=== PATIENT | female | born 1955 | race Caucasian/White ===

== ENCOUNTER 2017-04-05 15:58 | Inpatient (IN) ==
[2017-04-05] MEDS ORDERED: DEXTROSE 50% 25 GM/50 ML VIAL IV PRN (16:12)
[2017-04-05] MEDS ORDERED: GLUCAGON 1 MG VIAL IM PRN (16:12)
[2017-04-05] MEDS ORDERED: ONDANSETRON 4 MG/2 ML VIAL IV PRN (16:12)
--- NOTE | 2017-04-05 16:44 | Internal Med History&Physical ---
Assessment and Plan - Time spent with patient Time spent with patient: Less than 30 minutes (1) Dehydration, moderate Status: Acute Current Visit: Yes (2) Hypertension, essential Status: Chronic Current Visit: Yes (3) Type 2 diabetes mellitus with hyperglycemia Status: Chronic Current Visit: Yes (4) Morbid obesity due to excess calories Status: Chronic Current Visit: Yes (5) Dyslipidemia Status: Chronic Current Visit: Yes History of Present Illness Chief complaint: admission from the clinic for dehydration, diabetes type 2 uncontrolled, History of present illness: Ms. Head is a 61 year old female pt came for clinic visit, PCP was , last visit more than 1 year ago. has high blood glu reading 400+,since 1 week. feeling nauseated, vomiting + since 2 weeks, having loss of appetite. vomit was with stomach contents, no blood, did not eat since this morning, no fever, no chest pain , no cough, No diarrhea, no urine symptoms, feels throat hurting since 3 days because of the vomiting. feeling dehydrated, Home Medications Medication Instructions Recorded Confirmed Type Atorvastatin [Lipitor] 10 mg PO DAILY 04/23/15 04/23/15 History Escitalopram [Lexapro] 10 mg PO DAILY 04/23/15 04/23/15 History Insulin Glargine,Hum.rec.anlog 20 units SUBCUT BID 04/23/15 04/23/15 History [Lantus Solostar] Insulin Glargine,Hum.rec.anlog 30 units SUBCUT BEDTIME 04/23/15 04/23/15 History [Lantus Solostar] Liraglutide [Victoza 2-Jarrett] 1.2 ml SUBCUT DAILY 04/23/15 04/23/15 History Valsartan [Valsartan] 160 mg PO DAILY 04/23/15 04/23/15 History Allergies Allergy/AdvReac Type Severity Reaction Status Date / Time No Known Allergies Allergy Unverified 04/23/15 15:38 Medical,Surgical,& Family Hx - Medical History Cardio: History of: Hypertension Psychological: History of: Anxiety Disorders Endocrine: History of: Diabetes Mellitus (IDDM) (uncontrolled), Dyslipidemia - Surgical History Abdominal Surgeries: Surgical HX of: EGD (2010) - Family History Family History: noncontributory - Social History Smoking Status: Never smoker 12 point system: reviewed and no additional remarkable complaints except as stated - Constitutional Constitutional: Present: as per HPI - EENT Eyes: Present: blurry vision (right eye intermittently) - Cardiovascular Cardiovascular: Present: as per HPI - Respiratory Respiratory: Present: as per HPI - Gastrointestinal Gastrointestinal: Present: as per HPI Exam - Constitutional Vitals: Vitals from the clinic on 04/05/2017, Temp 98.1, heart rate 98/m, respirations 20/m, blood pressure 170/98, weight 215 pounds, height 64 inches BMI 36.90, pulse ox 99% at room air General appearance: no acute distress, morbidly obese - Head Head exam: Present: normal inspection, atraumatic - Eye Eye exam: Present: EOMI Pupils: Present: JACKIE - ENT ENT exam: Present: normal exam - Neck Neck exam: Present: normal inspection - Respiratory Respiratory exam: Present: clear to auscultation bilaterally - Cardiovascular Cardiovascular exam: Present: regular rate and rhythm - GI/Abdominal GI/Abdominal exam: Present: normal bowel sounds, tenderness (none), soft - Extremities Exam Extremities exam: Present: normal inspection, edema (no pedal edema) - Psychiatric Psychiatric exam: Present: normal affect, normal mood - Skin Skin exam: Present: dry (oral mucous membranes) Results - Labs Labs: Dated 04/05/2017, done in the clinic. CBC with H&H 13.9, 44.8, WBC count 8.81 CMP glucose for 411, BUN/creatinine 21, 0.84, bicarbonate 27.9 Hemoglobin A1c 12.8 Urinalysis, urine glucose more than 1000, urine ketones more than 80. Awaiting serum ketones results
[2017-04-05 17:00] LABS: Basophils # 0.1 10*3/uL (0.0-0.2); Basophils % 0.7 % (0.0-0.8); Eosinophils # 0.2 10*3/uL (0.0-0.87); Eosinophils % 1.5 % (0.00-10.9); Hematocrit 43.7 VOL% (35.7-47.0); Hemoglobin 14.5 GM/DL (12.0-16.0); Immature Granulocytes % 0.4 %; Immature Granulocytes Absolute 0.04 #; Lymphocytes # 2.4 10*3/uL (1.4-4.0); Lymphocytes % 24.8 % (21.3-54.2); Mean Corpuscular HGB Conc 33.2 GM/DL (32-36); Mean Corpuscular Hemoglobin 31 PG (27-34); Mean Corpuscular Volume 91.8 FL (87-102); Mean Platelet Volume 11.6 FL (9.6-12.0); Monocytes # 0.7 10*3/uL (0.11-0.8); Monocytes % 6.9 % (1.7-12.7); Neutrophils # 6.4 10*3/uL (1.4-7.4); Neutrophils % 65.7 % (38.7-73.9); Platelet Count 300 T/CUMM (130-400); Red Blood Count 4.76 MC/CUMM (3.8-5.5); White Blood Count 9.7 T/CUMM (4-12)
[2017-04-05] MEDS: SODIUM CHLORIDE 0.45% 1,000 ML IV SCH (17:00)
[2017-04-05 17:17] LABS: Calcium 10.2 MG/DL (8.5-10.1); Osmolality,Calculated 285.4 MOS/KG (273-304); Potassium 4.8 MMOL/L (3.5-5.1)
[2017-04-05] MEDS: INSULIN LISPRO 100 UNIT/ML SUBCUT SCH ×2 (17:56→21:02)
[2017-04-05] MEDS: VALSARTAN 160 MG TABLET PO SCH (18:30)
[2017-04-05] MEDS: INSULIN GLARGINE 100 UNIT/ML SUBCUT SCH (21:01)
[2017-04-05] MEDS: ENOXAPARIN 40 MG/0.4 ML SYRINGE SUBCUT SCH (21:03)
[2017-04-06] MEDS: SODIUM CHLORIDE 0.45% 1,000 ML IV SCH ×2 (01:38→09:59)
[2017-04-06 06:26] LABS: Calcium 8.9 MG/DL (8.5-10.1); Potassium 4.4 MMOL/L (3.5-5.1)
[2017-04-06] MEDS ORDERED: SODIUM CHLORIDE 0.9% 1,000 ML IV SCH (09:30)
[2017-04-06] MEDS: INSULIN LISPRO 100 UNIT/ML SUBCUT SCH ×4 (09:47→21:54)
[2017-04-06] MEDS: PANTOPRAZOLE 40 MG TABLET PO SCH (09:47)
[2017-04-06] MEDS: ATORVASTATIN 10 MG TABLET PO SCH (09:47)
[2017-04-06] MEDS: VALSARTAN 160 MG TABLET PO SCH (09:47)
--- NOTE | 2017-04-06 09:48 | Internal Med Progress Note ---
Assessment and Plan (1) Dehydration, moderate Status: Acute Current Visit: Yes (2) Hypertension, essential Status: Chronic Current Visit: Yes (3) Type 2 diabetes mellitus with hyperglycemia Status: Chronic Current Visit: Yes (4) Morbid obesity due to excess calories Status: Chronic Current Visit: Yes (5) Dyslipidemia Status: Chronic Current Visit: Yes Internal Medicine - PN: Subj Interval history: Patient seen and examined in the exam room, Patient feels better than yesterday, mentions her last vomited yesterday evening 1 vomit with stomach contents. This morning nausea has improved No diarrhea. No burning sensation in the urine. Exam (Progress Note) - Constitutional Vitals: Period Temp Pulse Resp BP Sys/Zurita Pulse Ox Last 24 Hr 98.2 F-98.6 F 97-105 18-20 128-137/62-69 97-100 General appearance: no acute distress, morbidly obese - Head Head exam: Present: normal inspection, normocephalic, atraumatic - Eye Eye exam: Present: EOMI Pupils: Present: JACKIE - ENT ENT exam: Present: other (Decreased hearing on the right side) - Neck Neck exam: Present: normal inspection - Respiratory Respiratory exam: Present: clear to auscultation bilaterally - Cardiovascular Cardiovascular exam: Present: regular rate and rhythm - GI/Abdominal GI/Abdominal exam: Present: normal bowel sounds, soft - Extremities Exam Extremities exam: Present: normal inspection - Neurological Exam Neurological exam: Present: oriented X3, CN II-XII intact - Skin Skin exam: Present: normal color Results - Labs CBC & BMP: 04/05/17 16:40 04/06/17 04:28
[2017-04-06] MEDS: metFORMIN 500 MG TABLET PO SCH (19:33)
[2017-04-06] MEDS: sitaGLIPtin 25 MG TABLET PO SCH (19:34)
[2017-04-06] MEDS: ENOXAPARIN 40 MG/0.4 ML SYRINGE SUBCUT SCH (21:51)
[2017-04-06] MEDS: INSULIN GLARGINE 100 UNIT/ML SUBCUT SCH (21:53)
[2017-04-07] MEDS: metFORMIN 500 MG TABLET PO SCH ×2 (09:06→09:09)
[2017-04-07] MEDS: VALSARTAN 160 MG TABLET PO SCH (09:06)
[2017-04-07] MEDS: PANTOPRAZOLE 40 MG TABLET PO SCH (09:06)
[2017-04-07] MEDS: sitaGLIPtin 25 MG TABLET PO SCH (09:06)
[2017-04-07] MEDS: ATORVASTATIN 10 MG TABLET PO SCH (09:06)
[2017-04-07] MEDS: INSULIN LISPRO 100 UNIT/ML SUBCUT SCH (09:50)
--- NOTE | 2017-04-07 11:48 | Discharge Summary ---
Hospital Course - Hospital Course Hospital Course: pt admitted from the [facility] clinic on 04/05/17 , for IVVD/dehydration , uncontrolled type [address] mellitus[address] Blancas the last appointment was more than 1 year ago. Patient is very noncompliant with her medication. When presented in the clinic, patient was vomiting for the past 2 weeks. Patient was put in 4 E. with monitored bed. Was put on IV fluids sliding scale insulin and continued her home medication. Patient improved during the hospital course vomiting improved, basic labs were followed during the hospital stay. Dehydration improved,no vomiting since past 24 hrs . Patient refused gastric emptying study during the hospital stay, Patient was also taking her home insulin medication without telling the nurse. As per the diabetic consult patient is not using the insulin pen correctly. She was taught how to use the pen properly. - Time spent with patient Time with patient DS: Less than 30 minutes Diagnosis - Discharge Diagnosis (1) Dehydration, moderate Status: Resolved (2) Hypertension, essential Status: Chronic (3) Type 2 diabetes mellitus with hyperglycemia Status: Chronic (4) Morbid obesity due to excess calories Status: Chronic (5) Dyslipidemia Status: Chronic (6) Anxiety Status: Chronic (7) Medical non-compliance Status: Chronic Specialty Discharge - Follow Up or Referrals Follow up with: Otf Blancas MD [Primary Care Provider] - 04/14/17 Discharge Plan - Discharge Data Disposition: Disch To Home/Self Care Condition at Discharge: Stable Discharge Diet: diabetic diet, low salt diet Activity: resume usual activities as tolerated Hygiene: no restrictions - Discharge Medications New sitaGLIPtin [Januvia] 50 mg PO DAILY #30 tablet NS metFORMIN [Glucophage] 500 mg PO BID W/MEALS #60 tablet NS Pantoprazole Tab [Protonix Tab] 20 mg PO DAILY #30 tablet NS Continue Valsartan 160 mg PO DAILY Atorvastatin [Lipitor] 10 mg PO DAILY Escitalopram [Lexapro] 10 mg PO DAILY #30 Changed Insulin Glargine,Hum.rec.anlog [Lantus SoloStar] 30 units SUBCUT BEDTIME #1 unit NS No Action Escitalopram [Lexapro] 10 mg PO DAILY Glimepiride [Amaryl] 2 mg PO DAILY W/BREAKFAST - Follow Up or Referral Follow Up: Otf Blancas MD [Primary Care Provider] - 04/14/17 (Cancel appointment with Dr. Blancas.) - Forms/Instructions Instructions: Diabetes Mellitus Type 2 in Adults (GEN) Exam - Constitutional Vitals: Period Temp Pulse Resp BP Sys/Zurita Pulse Ox Last 24 Hr 97.3 F-98.3 F 88-110 18-20 97-149/50-69 96-97 General appearance: no acute distress Exam: Patient is up and walking around in the room, no IV fluids in place - Head Head exam: Present: normal inspection, normocephalic - Eye Eye exam: Present: EOMI Pupils: Present: JACKIE - ENT ENT exam: Present: other (Decreased hearing on the right side.) - Neck Neck exam: Present: normal inspection - Respiratory Respiratory exam: Present: clear to auscultation bilaterally - Cardiovascular Cardiovascular exam: Present: regular rate and rhythm - GI/Abdominal GI/Abdominal exam: Present: normal bowel sounds, soft - Extremities Exam Extremities exam: Present: normal inspection, edema (None) - Neurological Exam Neurological exam: Present: alert, oriented X3, normal gait - Psychiatric Psychiatric exam: Present: normal affect, normal mood, anxious (mild) - Skin Skin exam: Present: normal color Discharge Results Procedures and tests throughout hospitalization: Patient refused gastric emptying study which was supposed to be done today. Labs on day of discharge: Labs from last 24 hours 04/07/17 04/07/17 04/07/17 07:30 03:32 01:31 POC Glucose 247 H 214 H 79 04/06/17 04/06/17 04/06/17 21:43 19:46 16:58 POC Glucose 366 H 471 H 369 H 04/06/17 12:40 POC Glucose 265 H DS: Provider Date of admission: 04/05/17 16:08 Primary care physician: Otf Blancas MD Attending physician on admission: Mandy Gambino MD Consults: 04/05/17 16:12 Consult to Case Mgmt/Social Srvs [CONS] Routine Reason for Case Mgmt/Social Srvs: Discharge Planning 04/05/17 16:32 Consult to [facility], Educator [CONS] Routine Reason for Associate Director Qa: Re-education Evaluate and Recommend Diet Discharging clinician: Mandy Gambino MD Expected date of discharge: 04/07/17
[2017-04-07 13:31] VITALS: BP 124/60
== END 2017-04-07 13:25 | disposition home or self-care (01) | DRG 638 ==
LOC: N.4E 16:08
PROVIDERS: ADMIT Family Medicine; ATTEND Family Medicine

== ENCOUNTER 2018-07-31 16:11 | Inpatient (IN) ==
[2018-07-31] MEDS ORDERED: SODIUM CHLORIDE 0.9% 1,000 ML IV PRN (16:23)
[2018-07-31] MEDS ORDERED: DEXTROSE 50% 25 GM/50 ML VIAL IV PRN (17:27)
[2018-07-31] MEDS ORDERED: GLUCAGON 1 MG VIAL IM PRN (17:27)
[2018-07-31] MEDS: SODIUM CHLORIDE 0.9% 1,000 ML IV SCH (17:59)
[2018-07-31] MEDS: INSULIN LISPRO 100 UNIT/ML SUBCUT SCH ×2 (18:10→21:55)
[2018-07-31 18:12] LABS: Albumin 2.8 G/DL (3.4-5.0); Bilirubin,Total 0.7 MG/DL (0.2-1.0); Calcium 8.6 MG/DL (8.5-10.1); Osmolality,Calculated 284.1 MOS/KG (273-304); Potassium 4.4 MMOL/L (3.5-5.1); Total Protein 7.6 G/DL (6.4-8.3)
[2018-07-31 18:14] LABS: % Iron Saturation 2.5 % (18-50); Ferritin 2.8 ng/ml (8-252)
[2018-07-31 18:19] LABS: Folate 21.4 NG/ML (5.4-24.0); Vitamin B12 > 2000 PG/ML (211-911)
[2018-07-31] MEDS: prednisoLONE ACETATE 1% OPH SUSP 5 ML BOTTLE RIGHT EYE SCH ×2 (18:38→20:32)
[2018-07-31 18:46] LABS: Apearance,Urine CLEAR (Clear); Bacteria,Urine Occasional /HPF (Few); Bilirubin,Urine Negative (Negative); Blood, Urine Negative (Negative); Glucose,Urine (UA) >=500 mg/dL (Negative); Ketones,Urine Negative (Negative); Nitrite,Urine Negative (Negative); Protein,Urine Negative; RBC,Urine <1 /HPF (0-4); Urine Color Straw (Yellow); Urine Specific Gravity 1.012 (1.001-1.035); Urine Urobilinogen < 2.0 EU/DL (0.2-1.0); WBC,Urine 5 /HPF (0-6)
[2018-07-31] MEDS: DOCUSATE SODIUM 100 MG CAPSULE PO SCH (20:30)
[2018-07-31] MEDS: PANTOPRAZOLE 40 MG VIAL IV SCH (20:31)
[2018-07-31] MEDS: ACETAMINOPHEN 325 MG TABLET PO PRN (21:44)
[2018-07-31 23:33] LABS: Apearance,Urine CLEAR (Clear); Bacteria,Urine Occasional /HPF (Few); Bilirubin,Urine Negative (Negative); Blood, Urine Negative (Negative); Glucose,Urine (UA) >=500 mg/dL (Negative); Ketones,Urine Negative (Negative); Nitrite,Urine Negative (Negative); Protein,Urine Negative; RBC,Urine 2 /HPF (0-4); Squamous Epithelial Cell,Urine Occasional /HPF (0-10); Urine Color Colorless (Yellow); Urine Specific Gravity 1.005 (1.001-1.035); Urine Urobilinogen < 2.0 EU/DL (0.2-1.0); WBC,Urine 13 /HPF (0-6)
[2018-08-01] MEDS: SODIUM CHLORIDE 0.9% 1,000 ML IV SCH ×3 (02:12→18:16)
[2018-08-01 06:05] LABS: Basophils # 0.1 10*3/uL (0.0-0.2); Basophils % 0.7 % (0.0-0.8); Eosinophils # 0.5 10*3/uL (0.0-0.87); Eosinophils % 4.7 % (0.00-10.9); Hematocrit 30.4 VOL% (35.7-47.0); Hemoglobin 9.1 GM/DL (12.0-16.0); Immature Granulocytes % 0.8 %; Immature Granulocytes Absolute 0.08 #; Lymphocytes # 2.4 10*3/uL (1.4-4.0); Lymphocytes % 23.8 % (21.3-54.2); Mean Corpuscular HGB Conc 29.9 GM/DL (32-36); Mean Corpuscular Hemoglobin 24 PG (27-34); Mean Corpuscular Volume 78.6 FL (87-102); Monocytes # 0.8 10*3/uL (0.11-0.8); Monocytes % 8.3 % (1.7-12.7); NRBC # 0.02 10*3/uL; Neutrophils # 6.1 10*3/uL (1.4-7.4); Neutrophils % 61.7 % (38.7-73.9); Platelet Count 565 T/CUMM (130-400); Red Blood Count 3.87 MC/CUMM (3.8-5.5); Red Cell Distribution Width 15.1 % (9.3-17.3)
[2018-08-01] MEDS: cefTRIAXone 1,000 MG in SYRINGE 1 EACH IV SCH (07:23)
[2018-08-01] MEDS: INSULIN LISPRO 100 UNIT/ML SUBCUT SCH ×4 (07:43→21:38)
[2018-08-01 07:52] LABS: INR 0.9
[2018-08-01] MEDS: DOCUSATE SODIUM 100 MG CAPSULE PO SCH ×2 (08:12→21:38)
[2018-08-01] MEDS: PANTOPRAZOLE 40 MG VIAL IV SCH ×2 (08:12→21:48)
[2018-08-01] MEDS: prednisoLONE ACETATE 1% OPH SUSP 5 ML BOTTLE RIGHT EYE SCH ×4 (08:16→21:39)
[2018-08-01 08:49] LABS: Total Protein 7.7 G/DL (6.4-8.3)
[2018-08-01 09:00] LABS: Immunoglobulin A (Chem) 433 MG/DL (70-400); Immunoglobulin G (Chem) 1360 MG/DL (700-1600); Immunoglobulin M (Chem) 148 MG/DL (40-230); Total Protein (Chem) 7.7 G/DL (6.4-8.3)
[2018-08-01] MEDS ORDERED: PANTOPRAZOLE 40 MG VIAL IV SCH (09:00)
[2018-08-01 09:22] LABS: Immuno Free Light Chain Lambda 2.25 MG/DL (0.57-2.63); Immuno Free Light Chain Ratio 1.11 MG/DL (0.26-1.65)
[2018-08-01 10:26] LABS: Albumin (SPE) 3.5 G/DL (3.2-5.3)
[2018-08-01 10:27] LABS: Albumin (SPE) Rel % 45.8 %; Alpha 1 (SPE) 0.3 G/DL (0.1-0.4); Alpha 1 (SPE) Rel % 4.4 %; Alpha 2 (SPE) 1.2 G/DL (0.4-1.0); Alpha 2 (SPE) Rel % 15.3 %; Beta (SPE) 1.1 G/DL (0.5-1.1); Beta (SPE) Rel % 14.2 %; Gamma (SPE) 1.6 G/DL (0.7-1.7); Gamma (SPE) Rel % 20.3 %
[2018-08-01] MEDS: ACETAMINOPHEN 325 MG TABLET PO PRN ×2 (13:01→18:15)
[2018-08-01] MEDS ORDERED: POLYETHYLENE GLYCOL POWDER 17 GM PACK PO PRN (14:28)
[2018-08-02] MEDS: SODIUM CHLORIDE 0.9% 1,000 ML IV SCH ×3 (02:37→16:51)
[2018-08-02] MEDS: ACETAMINOPHEN 325 MG TABLET PO PRN ×3 (05:52→21:04)
[2018-08-02 08:47] LABS: Basophils # 0.1 10*3/uL (0.0-0.2); Basophils % 0.6 % (0.0-0.8); Eosinophils # 0.5 10*3/uL (0.0-0.87); Eosinophils % 4.9 % (0.00-10.9); Hematocrit 27.8 VOL% (35.7-47.0); Hemoglobin 8.4 GM/DL (12.0-16.0); Lymphocytes # 1.6 10*3/uL (1.4-4.0); Lymphocytes % 16.6 % (21.3-54.2); Mean Corpuscular HGB Conc 30.2 GM/DL (32-36); Mean Corpuscular Hemoglobin 24 PG (27-34); Mean Corpuscular Volume 80.3 FL (87-102); Mean Platelet Volume 9.6 FL (9.6-12.0); Monocytes % 9.7 % (1.7-12.7); Neutrophils # 6.6 10*3/uL (1.4-7.4); Neutrophils % 67.2 % (38.7-73.9); Platelet Count 526 T/CUMM (130-400); Red Blood Count 3.46 MC/CUMM (3.8-5.5); Red Cell Distribution Width 16.1 % (9.3-17.3); White Blood Count 9.8 T/CUMM (4-12)
[2018-08-02] MEDS: prednisoLONE ACETATE 1% OPH SUSP 5 ML BOTTLE RIGHT EYE SCH ×4 (09:01→21:04)
[2018-08-02] MEDS: INSULIN LISPRO 100 UNIT/ML SUBCUT SCH ×4 (09:01→21:03)
[2018-08-02] MEDS: DOCUSATE SODIUM 100 MG CAPSULE PO SCH ×2 (09:01→21:04)
[2018-08-02] MEDS: PANTOPRAZOLE 40 MG VIAL IV SCH ×2 (09:01→21:03)
[2018-08-02] MEDS: cefTRIAXone 1,000 MG in SYRINGE 1 EACH IV SCH (09:05)
[2018-08-02] MEDS ORDERED: LIDOCAINE 2% 5 ML VIAL ONE (10:00)
[2018-08-02] MEDS ORDERED: PROPOFOL 200 MG/20 ML VIAL IV ONE (10:00)
[2018-08-02] MEDS ORDERED: ACETAMINOPHEN 500 MG TABLET PO ONE (23:00)
[2018-08-03] MEDS: SODIUM CHLORIDE 0.9% 1,000 ML IV SCH ×3 (02:19→23:41)
[2018-08-03] MEDS: INSULIN LISPRO 100 UNIT/ML SUBCUT SCH ×4 (08:54→21:06)
[2018-08-03] MEDS: DOCUSATE SODIUM 100 MG CAPSULE PO SCH ×2 (08:55→21:06)
[2018-08-03] MEDS: cefTRIAXone 1,000 MG in SYRINGE 1 EACH IV SCH (08:55)
[2018-08-03] MEDS: HYDROmorphone 2 MG/1 ML VIAL IV PRN ×2 (09:02→21:24)
[2018-08-03] MEDS: prednisoLONE ACETATE 1% OPH SUSP 5 ML BOTTLE RIGHT EYE SCH ×4 (09:04→21:08)
[2018-08-03] MEDS: PANTOPRAZOLE 40 MG VIAL IV SCH ×2 (09:05→21:06)
[2018-08-03 10:07] LABS: Cancer Antigen 19-9 165.8 U/ML (0-37)
[2018-08-03] MEDS ORDERED: BISACODYL 5 MG TABLET PO ONE (12:48)
[2018-08-04] MEDS: HYDROmorphone 2 MG/1 ML VIAL IV PRN ×4 (04:14→21:15)
[2018-08-04] MEDS: SODIUM CHLORIDE 0.9% 1,000 ML IV SCH ×3 (08:20→20:59)
[2018-08-04] MEDS: cefTRIAXone 1,000 MG in SYRINGE 1 EACH IV SCH (08:21)
[2018-08-04] MEDS: PANTOPRAZOLE 40 MG VIAL IV SCH ×2 (08:22→20:59)
[2018-08-04] MEDS: DOCUSATE SODIUM 100 MG CAPSULE PO SCH ×2 (08:23→20:59)
[2018-08-04] MEDS: prednisoLONE ACETATE 1% OPH SUSP 5 ML BOTTLE RIGHT EYE SCH ×4 (08:23→21:16)
[2018-08-04] MEDS: INSULIN LISPRO 100 UNIT/ML SUBCUT SCH ×4 (08:28→21:08)
[2018-08-04 08:41] LABS: Hematocrit 30.4 VOL% (35.7-47.0); Hemoglobin 8.9 GM/DL (12.0-16.0)
[2018-08-05] MEDS: SODIUM CHLORIDE 0.9% 1,000 ML IV SCH ×3 (02:07→21:23)
[2018-08-05] MEDS: HYDROmorphone 2 MG/1 ML VIAL IV PRN ×4 (05:25→19:09)
[2018-08-05 05:48] LABS: Basophils # 0.1 10*3/uL (0.0-0.2); Basophils % 0.6 % (0.0-0.8); Eosinophils # 0.4 10*3/uL (0.0-0.87); Eosinophils % 4.9 % (0.00-10.9); Hematocrit 28.7 VOL% (35.7-47.0); Hemoglobin 8.4 GM/DL (12.0-16.0); Immature Granulocytes % 0.5 %; Immature Granulocytes Absolute 0.04 #; Lymphocytes # 1.3 10*3/uL (1.4-4.0); Lymphocytes % 15.9 % (21.3-54.2); Mean Corpuscular HGB Conc 29.3 GM/DL (32-36); Mean Corpuscular Hemoglobin 24 PG (27-34); Mean Platelet Volume 9.2 FL (9.6-12.0); Monocytes # 0.7 10*3/uL (0.11-0.8); Monocytes % 7.9 % (1.7-12.7); Neutrophils # 5.8 10*3/uL (1.4-7.4); Neutrophils % 70.2 % (38.7-73.9); Platelet Count 476 T/CUMM (130-400); White Blood Count 8.2 T/CUMM (4-12)
[2018-08-05 05:50] LABS: Calcium 8.6 MG/DL (8.5-10.1); Potassium 3.9 MMOL/L (3.5-5.1)
[2018-08-05] MEDS: INSULIN LISPRO 100 UNIT/ML SUBCUT SCH ×4 (08:24→21:21)
[2018-08-05] MEDS: prednisoLONE ACETATE 1% OPH SUSP 5 ML BOTTLE RIGHT EYE SCH ×4 (08:25→21:21)
[2018-08-05] MEDS: cefTRIAXone 1,000 MG in SYRINGE 1 EACH IV SCH (08:25)
[2018-08-05] MEDS: DOCUSATE SODIUM 100 MG CAPSULE PO SCH ×2 (08:26→21:20)
[2018-08-05] MEDS: PANTOPRAZOLE 40 MG VIAL IV SCH ×2 (08:26→21:20)
[2018-08-05] MEDS: VALSARTAN 160 MG TABLET PO SCH (12:35)
[2018-08-05] MEDS: INSULIN GLARGINE 100 UNIT/ML SUBCUT SCH ×2 (21:22→21:29)
[2018-08-06] MEDS: HYDROmorphone 2 MG/1 ML VIAL IV PRN ×4 (01:12→20:36)
[2018-08-06 06:21] LABS: Basophils % 0.3 % (0.0-0.8); Eosinophils # 0.3 10*3/uL (0.0-0.87); Eosinophils % 4.3 % (0.00-10.9); Hematocrit 27.4 VOL% (35.7-47.0); Hemoglobin 8.1 GM/DL (12.0-16.0); Immature Granulocytes % 0.5 %; Immature Granulocytes Absolute 0.04 #; Lymphocytes # 1.4 10*3/uL (1.4-4.0); Lymphocytes % 17.5 % (21.3-54.2); Mean Corpuscular HGB Conc 29.6 GM/DL (32-36); Mean Corpuscular Hemoglobin 24 PG (27-34); Mean Corpuscular Volume 80.8 FL (87-102); Mean Platelet Volume 9.9 FL (9.6-12.0); Monocytes # 0.7 10*3/uL (0.11-0.8); Monocytes % 8.8 % (1.7-12.7); Neutrophils # 5.5 10*3/uL (1.4-7.4); Neutrophils % 68.6 % (38.7-73.9); Platelet Count 481 T/CUMM (130-400); Red Blood Count 3.39 MC/CUMM (3.8-5.5); Red Cell Distribution Width 18.3 % (9.3-17.3)
[2018-08-06 06:40] LABS: Calcium 8.7 MG/DL (8.5-10.1); Osmolality,Calculated 278.2 MOS/KG (273-304); Potassium 3.9 MMOL/L (3.5-5.1)
[2018-08-06] MEDS: INSULIN LISPRO 100 UNIT/ML SUBCUT SCH ×5 (07:45→22:29)
[2018-08-06] MEDS: cefTRIAXone 1,000 MG in SYRINGE 1 EACH IV SCH (08:03)
[2018-08-06] MEDS: VALSARTAN 160 MG TABLET PO SCH (10:06)
[2018-08-06] MEDS: PANTOPRAZOLE 40 MG VIAL IV SCH ×2 (10:06→20:36)
[2018-08-06] MEDS: ESCITALOPRAM 10 MG TABLET PO SCH (10:06)
[2018-08-06] MEDS: ATORVASTATIN 10 MG TABLET PO SCH (10:07)
[2018-08-06] MEDS: prednisoLONE ACETATE 1% OPH SUSP 5 ML BOTTLE RIGHT EYE SCH ×4 (10:07→20:45)
[2018-08-06] MEDS: DOCUSATE SODIUM 100 MG CAPSULE PO SCH ×2 (10:08→20:45)
[2018-08-06] MEDS: SODIUM CHLORIDE 0.9% 1,000 ML IV SCH (19:10)
[2018-08-06] MEDS: INSULIN GLARGINE 100 UNIT/ML SUBCUT SCH (22:29)
[2018-08-07] MEDS: HYDROmorphone 2 MG/1 ML VIAL IV PRN ×5 (02:02→21:49)
[2018-08-07] MEDS: INSULIN LISPRO 100 UNIT/ML SUBCUT SCH ×4 (08:00→21:05)
[2018-08-07 08:15] LABS: Basophils # 0.1 10*3/uL (0.0-0.2); Basophils % 0.7 % (0.0-0.8); Eosinophils # 0.5 10*3/uL (0.0-0.87); Eosinophils % 7.1 % (0.00-10.9); Hematocrit 28.4 VOL% (35.7-47.0); Hemoglobin 8.3 GM/DL (12.0-16.0); Immature Granulocytes % 0.6 %; Immature Granulocytes Absolute 0.04 #; Lymphocytes # 1.3 10*3/uL (1.4-4.0); Lymphocytes % 18.7 % (21.3-54.2); Mean Corpuscular HGB Conc 29.2 GM/DL (32-36); Mean Corpuscular Hemoglobin 24 PG (27-34); Mean Corpuscular Volume 81.8 FL (87-102); Mean Platelet Volume 9.6 FL (9.6-12.0); Monocytes # 0.7 10*3/uL (0.11-0.8); Monocytes % 9.9 % (1.7-12.7); Neutrophils # 4.4 10*3/uL (1.4-7.4); Platelet Count 435 T/CUMM (130-400); Red Blood Count 3.47 MC/CUMM (3.8-5.5); Red Cell Distribution Width 18.2 % (9.3-17.3)
[2018-08-07] MEDS ORDERED: LIDOCAINE 100 MG/5 ML SYRINGE ONE (09:00)
[2018-08-07] MEDS ORDERED: PROPOFOL 200 MG/20 ML VIAL IV ONE (09:00)
[2018-08-07] MEDS: DOCUSATE SODIUM 100 MG CAPSULE PO SCH ×2 (11:41→21:05)
[2018-08-07] MEDS: VALSARTAN 160 MG TABLET PO SCH (11:41)
[2018-08-07] MEDS: Liraglutide [Victoza 2-Pak] 1.2 MG SUBCUT SCH (11:42)
[2018-08-07] MEDS: ESCITALOPRAM 10 MG TABLET PO SCH (11:42)
[2018-08-07] MEDS: ATORVASTATIN 10 MG TABLET PO SCH (11:42)
[2018-08-07] MEDS: PANTOPRAZOLE 40 MG VIAL IV SCH ×2 (11:57→21:05)
[2018-08-07] MEDS: cefTRIAXone 1,000 MG in SYRINGE 1 EACH IV SCH (12:01)
[2018-08-07] MEDS: prednisoLONE ACETATE 1% OPH SUSP 5 ML BOTTLE RIGHT EYE SCH ×4 (12:01→19:50)
[2018-08-07] MEDS ORDERED: INSULIN LISPRO 100 UNIT/ML SUBCUT ONE (12:46)
[2018-08-07] MEDS: SODIUM CHLORIDE 0.9% 1,000 ML IV SCH (17:33)
[2018-08-07] MEDS: INSULIN GLARGINE 100 UNIT/ML SUBCUT SCH (21:04)
[2018-08-07] MEDS: ONDANSETRON 4 MG/2 ML VIAL IV PRN (21:48)
[2018-08-08] MEDS: HYDROmorphone 2 MG/1 ML VIAL IV PRN ×5 (02:18→21:02)
[2018-08-08 05:54] LABS: Basophils # 0.1 10*3/uL (0.0-0.2); Basophils % 0.4 % (0.0-0.8); Hemoglobin 9.3 GM/DL (12.0-16.0); Immature Granulocytes % 0.6 %; Immature Granulocytes Absolute 0.08 #; Lymphocytes # 0.8 10*3/uL (1.4-4.0); Mean Corpuscular Hemoglobin 24 PG (27-34); Mean Corpuscular Volume 80.3 FL (87-102); Mean Platelet Volume 9.3 FL (9.6-12.0); Monocytes # 0.9 10*3/uL (0.11-0.8); Monocytes % 7.2 % (1.7-12.7); Neutrophils % 85.8 % (38.7-73.9); Platelet Count 479 T/CUMM (130-400); Red Blood Count 3.86 MC/CUMM (3.8-5.5); Red Cell Distribution Width 18.3 % (9.3-17.3); White Blood Count 12.8 T/CUMM (4-12)
[2018-08-08 06:14] LABS: Albumin 2.6 G/DL (3.4-5.0); Bilirubin,Total 0.5 MG/DL (0.2-1.0); Osmolality,Calculated 273.2 MOS/KG (273-304); Potassium 4.2 MMOL/L (3.5-5.1); Total Protein 7.7 G/DL (6.4-8.3)
[2018-08-08] MEDS: PANTOPRAZOLE 40 MG VIAL IV SCH ×2 (08:55→20:53)
[2018-08-08] MEDS: ATORVASTATIN 10 MG TABLET PO SCH (08:58)
[2018-08-08] MEDS: DOCUSATE SODIUM 100 MG CAPSULE PO SCH ×2 (08:58→20:54)
[2018-08-08] MEDS: ESCITALOPRAM 10 MG TABLET PO SCH (08:58)
[2018-08-08] MEDS: VALSARTAN 160 MG TABLET PO SCH (08:58)
[2018-08-08] MEDS: INSULIN LISPRO 100 UNIT/ML SUBCUT SCH ×4 (08:58→20:54)
[2018-08-08] MEDS: prednisoLONE ACETATE 1% OPH SUSP 5 ML BOTTLE RIGHT EYE SCH ×4 (09:04→20:21)
[2018-08-08] MEDS: Liraglutide [Victoza 2-Pak] 1.2 MG SUBCUT SCH (09:05)
[2018-08-08] MEDS: cefTRIAXone 1,000 MG in SYRINGE 1 EACH IV SCH (10:00)
[2018-08-08] MEDS: SODIUM CHLORIDE 0.9% 1,000 ML IV SCH (18:39)
[2018-08-08] MEDS: INSULIN GLARGINE 100 UNIT/ML SUBCUT SCH (20:54)
[2018-08-09] MEDS: ONDANSETRON 4 MG/2 ML VIAL IV PRN ×2 (06:14→12:24)
[2018-08-09] MEDS: HYDROmorphone 2 MG/1 ML VIAL IV PRN ×4 (06:15→20:37)
[2018-08-09] MEDS: VALSARTAN 160 MG TABLET PO SCH (09:28)
[2018-08-09] MEDS: ATORVASTATIN 10 MG TABLET PO SCH (09:28)
[2018-08-09] MEDS: ESCITALOPRAM 10 MG TABLET PO SCH (09:28)
[2018-08-09] MEDS: DOCUSATE SODIUM 100 MG CAPSULE PO SCH ×2 (09:28→20:40)
[2018-08-09] MEDS: PANTOPRAZOLE 40 MG VIAL IV SCH ×2 (09:31→20:38)
[2018-08-09] MEDS: prednisoLONE ACETATE 1% OPH SUSP 5 ML BOTTLE RIGHT EYE SCH ×4 (09:31→20:40)
[2018-08-09] MEDS: Liraglutide [Victoza 2-Pak] 1.2 MG SUBCUT SCH (09:32)
[2018-08-09] MEDS: INSULIN LISPRO 100 UNIT/ML SUBCUT SCH ×4 (12:16→20:42)
[2018-08-09] MEDS: SODIUM CHLORIDE 0.9% 1,000 ML IV SCH (14:28)
[2018-08-09] MEDS: INSULIN GLARGINE 100 UNIT/ML SUBCUT SCH (20:41)
[2018-08-10] MEDS: HYDROmorphone 2 MG/1 ML VIAL IV PRN ×6 (04:12→22:03)
[2018-08-10 06:15] LABS: Albumin 2.1 G/DL (3.4-5.0); Bilirubin,Total 0.7 MG/DL (0.2-1.0); Calcium 8.4 MG/DL (8.5-10.1); Osmolality,Calculated 275.8 MOS/KG (273-304); Potassium 3.2 MMOL/L (3.5-5.1); Total Protein 6.7 G/DL (6.4-8.3)
[2018-08-10 06:52] LABS: Basophils # 0.1 10*3/uL (0.0-0.2); Basophils % 0.5 % (0.0-0.8); Eosinophils # 0.4 10*3/uL (0.0-0.87); Eosinophils % 3.9 % (0.00-10.9); Hematocrit 26.3 VOL% (35.7-47.0); Immature Granulocytes % 0.6 %; Immature Granulocytes Absolute 0.06 #; Lymphocytes # 1.3 10*3/uL (1.4-4.0); Lymphocytes % 13.2 % (21.3-54.2); Mean Corpuscular HGB Conc 29.3 GM/DL (32-36); Mean Corpuscular Hemoglobin 24 PG (27-34); Mean Corpuscular Volume 80.7 FL (87-102); Mean Platelet Volume 9.6 FL (9.6-12.0); Monocytes % 10.5 % (1.7-12.7); Neutrophils # 6.9 10*3/uL (1.4-7.4); Neutrophils % 71.3 % (38.7-73.9); Platelet Count 425 T/CUMM (130-400); Red Blood Count 3.26 MC/CUMM (3.8-5.5); Red Cell Distribution Width 18.6 % (9.3-17.3); White Blood Count 9.7 T/CUMM (4-12)
[2018-08-10 07:11] LABS: Hemoglobin 7.7 GM/DL (12.0-16.0)
[2018-08-10] MEDS ORDERED: SODIUM CHLORIDE 0.9% 1,000 ML IV PRN (07:41)
[2018-08-10] MEDS: INSULIN LISPRO 100 UNIT/ML SUBCUT SCH ×4 (08:11→20:52)
[2018-08-10] MEDS: DOCUSATE SODIUM 100 MG CAPSULE PO SCH ×2 (08:56→20:49)
[2018-08-10] MEDS: ESCITALOPRAM 10 MG TABLET PO SCH (08:56)
[2018-08-10] MEDS: PANTOPRAZOLE 40 MG VIAL IV SCH ×2 (08:56→20:49)
[2018-08-10] MEDS: VALSARTAN 160 MG TABLET PO SCH (08:56)
[2018-08-10] MEDS: prednisoLONE ACETATE 1% OPH SUSP 5 ML BOTTLE RIGHT EYE SCH ×4 (08:57→20:54)
[2018-08-10] MEDS: Liraglutide [Victoza 2-Pak] 1.2 MG SUBCUT SCH (08:57)
[2018-08-10] MEDS: ATORVASTATIN 10 MG TABLET PO SCH (08:59)
[2018-08-10] MEDS: SODIUM CHLORIDE 0.9% 1,000 ML IV SCH (09:00)
[2018-08-10] MEDS ORDERED: ALTEPLASE 2 MG VIAL ONE (09:46)
[2018-08-10] MEDS: ONDANSETRON 4 MG/2 ML VIAL IV PRN ×2 (10:14→17:58)
[2018-08-10] MEDS: POTASSIUM CHLORIDE 20 MEQ TABLET PO PRN ×2 (13:01→15:39)
[2018-08-10] MEDS: POTASSIUM CHLORIDE INJ 40 MEQ in SODIUM CHLORIDE 0.45% 1,000 ML IV SCH (16:31)
[2018-08-10] MEDS: INSULIN GLARGINE 100 UNIT/ML SUBCUT SCH (20:51)
[2018-08-11 05:54] LABS: Basophils # 0.1 10*3/uL (0.0-0.2); Basophils % 0.5 % (0.0-0.8); Eosinophils # 0.1 10*3/uL (0.0-0.87); Eosinophils % 1.5 % (0.00-10.9); Hematocrit 32.9 VOL% (35.7-47.0); Immature Granulocytes % 0.5 %; Immature Granulocytes Absolute 0.05 #; Lymphocytes # 0.9 10*3/uL (1.4-4.0); Lymphocytes % 9.7 % (21.3-54.2); Mean Corpuscular HGB Conc 30.4 GM/DL (32-36); Mean Corpuscular Hemoglobin 25 PG (27-34); Mean Corpuscular Volume 81.2 FL (87-102); Mean Platelet Volume 10.3 FL (9.6-12.0); Monocytes # 0.8 10*3/uL (0.11-0.8); Monocytes % 8.8 % (1.7-12.7); Neutrophils # 7.3 10*3/uL (1.4-7.4); Platelet Count 470 T/CUMM (130-400); Red Blood Count 4.05 MC/CUMM (3.8-5.5); Red Cell Distribution Width 17.9 % (9.3-17.3); White Blood Count 9.2 T/CUMM (4-12)
[2018-08-11 06:26] LABS: Albumin 2.3 G/DL (3.4-5.0); Bilirubin,Total 0.9 MG/DL (0.2-1.0); Calcium 6.8 MG/DL (8.5-10.1); Osmolality,Calculated 271.1 MOS/KG (273-304); Total Protein 7.6 G/DL (6.4-8.3)
[2018-08-11] MEDS: INSULIN LISPRO 100 UNIT/ML SUBCUT SCH ×4 (08:48→20:05)
[2018-08-11] MEDS: PANTOPRAZOLE 40 MG VIAL IV SCH ×2 (08:48→20:01)
[2018-08-11] MEDS: DOCUSATE SODIUM 100 MG CAPSULE PO SCH ×2 (08:49→20:01)
[2018-08-11] MEDS: prednisoLONE ACETATE 1% OPH SUSP 5 ML BOTTLE RIGHT EYE SCH ×4 (08:49→20:04)
[2018-08-11] MEDS: ATORVASTATIN 10 MG TABLET PO SCH (08:49)
[2018-08-11] MEDS: Liraglutide [Victoza 2-Pak] 1.2 MG SUBCUT SCH (08:49)
[2018-08-11] MEDS: VALSARTAN 160 MG TABLET PO SCH (08:49)
[2018-08-11] MEDS: ESCITALOPRAM 10 MG TABLET PO SCH (08:49)
[2018-08-11] MEDS: ONDANSETRON 4 MG/2 ML VIAL IV PRN (09:58)
[2018-08-11] MEDS ORDERED: DOCETAXEL IV ONE (12:00)
[2018-08-11] MEDS ORDERED: SODIUM CHLORIDE 0.9% IV ONE (12:00)
[2018-08-11] MEDS: GRANISETRON 1 MG/1 ML VIAL IV SCH (12:06)
[2018-08-11] MEDS: DEXAMETHASONE 10 MG/1 ML VIAL IV SCH (12:06)
[2018-08-11] MEDS ORDERED: diphenhydrAMINE CAP 50 MG CAPSULE PO ONE (13:19)
[2018-08-11] MEDS: hydrALAZINE 20 MG/1 ML VIAL IV PRN (13:33)
[2018-08-11 16:50] LABS: Apearance,Urine CLEAR (Clear); Bilirubin,Urine Negative (Negative); Blood, Urine Negative (Negative); Glucose,Urine (UA) 50 mg/dL (Negative); Ketones,Urine 20 mg/dL (Negative); Mucus,Urine Occasional /LPF (Occasional); Nitrite,Urine Negative (Negative); Protein,Urine Negative; RBC,Urine <1 /HPF (0-4); Squamous Epithelial Cell,Urine Occasional /HPF (0-10); Urine Color Colorless (Yellow); Urine Specific Gravity 1.005 (1.001-1.035); Urine Urobilinogen < 2.0 EU/DL (0.2-1.0); WBC,Urine 10 /HPF (0-6)
[2018-08-11] MEDS: FLUOROURACIL 1,200 MG in SODIUM CHLORIDE 0.9% 1,000 ML IV SCH (19:02)
[2018-08-11] MEDS: INSULIN GLARGINE 100 UNIT/ML SUBCUT SCH (20:04)
[2018-08-12 04:45] LABS: Basophils % 0.5 % (0.0-0.8); Hematocrit 37.2 VOL% (35.7-47.0); Hemoglobin 11.4 GM/DL (12.0-16.0); Immature Granulocytes % 0.6 %; Immature Granulocytes Absolute 0.05 #; Lymphocytes # 1.2 10*3/uL (1.4-4.0); Lymphocytes % 14.4 % (21.3-54.2); Mean Corpuscular HGB Conc 30.6 GM/DL (32-36); Mean Corpuscular Hemoglobin 25 PG (27-34); Mean Corpuscular Volume 80.2 FL (87-102); Mean Platelet Volume 10.2 FL (9.6-12.0); Monocytes # 0.5 10*3/uL (0.11-0.8); Monocytes % 6.7 % (1.7-12.7); Neutrophils # 6.3 10*3/uL (1.4-7.4); Neutrophils % 77.8 % (38.7-73.9); Platelet Count 531 T/CUMM (130-400); Red Blood Count 4.64 MC/CUMM (3.8-5.5); Red Cell Distribution Width 18.5 % (9.3-17.3); White Blood Count 8.1 T/CUMM (4-12)
[2018-08-12 05:07] LABS: Albumin 2.4 G/DL (3.4-5.0); Bilirubin,Total 0.9 MG/DL (0.2-1.0); Calcium 9.1 MG/DL (8.5-10.1); Osmolality,Calculated 273.1 MOS/KG (273-304); Potassium 3.3 MMOL/L (3.5-5.1); Total Protein 8.2 G/DL (6.4-8.3)
[2018-08-12] MEDS: POTASSIUM CHLORIDE INJ 40 MEQ in SODIUM CHLORIDE 0.45% 1,000 ML IV SCH ×3 (09:19→23:16)
[2018-08-12] MEDS: GRANISETRON 1 MG/1 ML VIAL IV SCH (09:47)
[2018-08-12] MEDS: DEXAMETHASONE 10 MG/1 ML VIAL IV SCH (09:47)
[2018-08-12] MEDS: PANTOPRAZOLE 40 MG VIAL IV SCH ×2 (09:48→20:25)
[2018-08-12] MEDS: prednisoLONE ACETATE 1% OPH SUSP 5 ML BOTTLE RIGHT EYE SCH ×4 (09:49→20:28)
[2018-08-12] MEDS: Liraglutide [Victoza 2-Pak] 1.2 MG SUBCUT SCH (09:49)
[2018-08-12] MEDS: INSULIN LISPRO 100 UNIT/ML SUBCUT SCH ×4 (09:50→20:24)
[2018-08-12] MEDS: VALSARTAN 160 MG TABLET PO SCH (11:21)
[2018-08-12] MEDS: ESCITALOPRAM 10 MG TABLET PO SCH (11:21)
[2018-08-12] MEDS: ATORVASTATIN 10 MG TABLET PO SCH (11:21)
[2018-08-12] MEDS: DOCUSATE SODIUM 100 MG CAPSULE PO SCH ×2 (11:24→20:28)
[2018-08-12] MEDS: hydrALAZINE 20 MG/1 ML VIAL IV PRN (14:28)
[2018-08-12] MEDS: FLUOROURACIL 1,200 MG in SODIUM CHLORIDE 0.9% 1,000 ML IV SCH (18:25)
[2018-08-12] MEDS: INSULIN GLARGINE 100 UNIT/ML SUBCUT SCH (20:23)
[2018-08-12] MEDS: SULFAMETHOX/TRIMETHOPRIM 800-160 MG TABLET PO SCH (20:28)
[2018-08-13] MEDS: hydrALAZINE 20 MG/1 ML VIAL IV PRN (03:40)
[2018-08-13 04:09] LABS: Basophils % 0.5 % (0.0-0.8); Hematocrit 36.1 VOL% (35.7-47.0); Hemoglobin 11.1 GM/DL (12.0-16.0); Immature Granulocytes % 0.8 %; Immature Granulocytes Absolute 0.05 #; Lymphocytes # 1.4 10*3/uL (1.4-4.0); Lymphocytes % 21.2 % (21.3-54.2); Mean Corpuscular HGB Conc 30.7 GM/DL (32-36); Mean Corpuscular Hemoglobin 25 PG (27-34); Mean Corpuscular Volume 80.4 FL (87-102); Mean Platelet Volume 10.6 FL (9.6-12.0); Monocytes # 0.3 10*3/uL (0.11-0.8); Neutrophils # 4.6 10*3/uL (1.4-7.4); Neutrophils % 72.5 % (38.7-73.9); Platelet Count 534 T/CUMM (130-400); Red Blood Count 4.49 MC/CUMM (3.8-5.5); Red Cell Distribution Width 18.7 % (9.3-17.3); White Blood Count 6.4 T/CUMM (4-12)
[2018-08-13 04:36] LABS: Albumin 2.3 G/DL (3.4-5.0); Bilirubin,Total 0.7 MG/DL (0.2-1.0); Calcium 8.8 MG/DL (8.5-10.1); Potassium 3.2 MMOL/L (3.5-5.1); Total Protein 7.5 G/DL (6.4-8.3)
[2018-08-13] MEDS ORDERED: HEPARIN LOCK FLUSH 500 UNIT/5 ML SYRINGE IV PRN (07:57)
[2018-08-13] MEDS ORDERED: ALTEPLASE 2 MG VIAL INTRACATH ONE (07:57)
[2018-08-13] MEDS: ESCITALOPRAM 10 MG TABLET PO SCH (10:13)
[2018-08-13] MEDS: DEXAMETHASONE 10 MG/1 ML VIAL IV SCH (10:14)
[2018-08-13] MEDS: VALSARTAN 160 MG TABLET PO SCH (10:14)
[2018-08-13] MEDS: PANTOPRAZOLE 40 MG VIAL IV SCH ×2 (10:14→20:22)
[2018-08-13] MEDS: GRANISETRON 1 MG/1 ML VIAL IV SCH (10:14)
[2018-08-13] MEDS: INSULIN LISPRO 100 UNIT/ML SUBCUT SCH ×4 (10:15→20:22)
[2018-08-13] MEDS: FLUOROURACIL 1,200 MG in SODIUM CHLORIDE 0.9% 1,000 ML IV SCH ×2 (10:16→17:36)
[2018-08-13] MEDS: DOCUSATE SODIUM 100 MG CAPSULE PO SCH ×2 (10:16→20:18)
[2018-08-13] MEDS: prednisoLONE ACETATE 1% OPH SUSP 5 ML BOTTLE RIGHT EYE SCH ×4 (10:17→20:18)
[2018-08-13] MEDS: Liraglutide [Victoza 2-Pak] 1.2 MG SUBCUT SCH (10:17)
[2018-08-13] MEDS: ATORVASTATIN 10 MG TABLET PO SCH (10:19)
[2018-08-13] MEDS: POTASSIUM CHLORIDE 20 MEQ TABLET PO SCH ×2 (10:20→20:26)
[2018-08-13] MEDS: SULFAMETHOX/TRIMETHOPRIM 800-160 MG TABLET PO SCH (10:20)
[2018-08-13] MEDS: POTASSIUM CHLORIDE INJ 40 MEQ in SODIUM CHLORIDE 0.45% 1,000 ML IV SCH ×2 (12:50→19:48)
[2018-08-13] MEDS: HYDROmorphone 2 MG/1 ML VIAL IV PRN (17:12)
[2018-08-13] MEDS: INSULIN GLARGINE 100 UNIT/ML SUBCUT SCH (20:19)
[2018-08-13] MEDS: NITROFURANTOIN MACRO/MONO 100 MG CAPSULE PO SCH (20:25)
[2018-08-14] MEDS: ONDANSETRON 4 MG/2 ML VIAL IV PRN ×2 (02:43→18:27)
[2018-08-14 02:54] LABS: Basophils % 0.2 % (0.0-0.8); Hematocrit 36.3 VOL% (35.7-47.0); Hemoglobin 10.9 GM/DL (12.0-16.0); Immature Granulocytes % 0.6 %; Immature Granulocytes Absolute 0.03 #; Lymphocytes # 0.9 10*3/uL (1.4-4.0); Lymphocytes % 19.9 % (21.3-54.2); Mean Corpuscular Hemoglobin 24 PG (27-34); Mean Corpuscular Volume 79.8 FL (87-102); Mean Platelet Volume 10.6 FL (9.6-12.0); Monocytes # 0.1 10*3/uL (0.11-0.8); Monocytes % 1.7 % (1.7-12.7); Neutrophils # 3.6 10*3/uL (1.4-7.4); Neutrophils % 77.6 % (38.7-73.9); Platelet Count 526 T/CUMM (130-400); Red Blood Count 4.55 MC/CUMM (3.8-5.5); Red Cell Distribution Width 18.8 % (9.3-17.3); White Blood Count 4.7 T/CUMM (4-12)
[2018-08-14 03:20] LABS: Albumin 2.2 G/DL (3.4-5.0); Bilirubin,Total 0.7 MG/DL (0.2-1.0); Calcium 8.5 MG/DL (8.5-10.1); Osmolality,Calculated 270.4 MOS/KG (273-304); Potassium 4.4 MMOL/L (3.5-5.1); Total Protein 7.1 G/DL (6.4-8.3)
[2018-08-14] MEDS: Liraglutide [Victoza 2-Pak] 1.2 MG SUBCUT SCH (10:00)
[2018-08-14] MEDS: NITROFURANTOIN MACRO/MONO 100 MG CAPSULE PO SCH ×2 (10:14→20:07)
[2018-08-14] MEDS: ATORVASTATIN 10 MG TABLET PO SCH (10:14)
[2018-08-14] MEDS: DOCUSATE SODIUM 100 MG CAPSULE PO SCH ×2 (10:15→20:07)
[2018-08-14] MEDS: PANTOPRAZOLE 40 MG VIAL IV SCH ×2 (10:16→20:06)
[2018-08-14] MEDS: ESCITALOPRAM 10 MG TABLET PO SCH (10:16)
[2018-08-14] MEDS: GRANISETRON 1 MG/1 ML VIAL IV SCH (10:16)
[2018-08-14] MEDS: VALSARTAN 160 MG TABLET PO SCH (10:16)
[2018-08-14] MEDS: POTASSIUM CHLORIDE 20 MEQ TABLET PO SCH ×2 (10:16→20:08)
[2018-08-14] MEDS: DEXAMETHASONE 10 MG/1 ML VIAL IV SCH (10:17)
[2018-08-14] MEDS: prednisoLONE ACETATE 1% OPH SUSP 5 ML BOTTLE RIGHT EYE SCH ×4 (10:18→20:18)
[2018-08-14] MEDS: POTASSIUM CHLORIDE INJ 40 MEQ in SODIUM CHLORIDE 0.45% 1,000 ML IV SCH (11:00)
[2018-08-14] MEDS: INSULIN LISPRO 100 UNIT/ML SUBCUT SCH ×4 (11:27→21:58)
[2018-08-14] MEDS: HYDROmorphone 2 MG/1 ML VIAL IV PRN (20:03)
[2018-08-14] MEDS: INSULIN GLARGINE 100 UNIT/ML SUBCUT SCH (21:52)
[2018-08-15] MEDS: POTASSIUM CHLORIDE INJ 40 MEQ in SODIUM CHLORIDE 0.45% 1,000 ML IV SCH ×2 (02:56→16:22)
[2018-08-15] MEDS: ONDANSETRON 4 MG/2 ML VIAL IV PRN ×3 (04:27→16:20)
[2018-08-15 05:12] LABS: Basophils % 0.2 % (0.0-0.8); Hematocrit 39.3 VOL% (35.7-47.0); Hemoglobin 11.8 GM/DL (12.0-16.0); Immature Granulocytes % 0.2 %; Immature Granulocytes Absolute 0.01 #; Lymphocytes # 1.6 10*3/uL (1.4-4.0); Lymphocytes % 33.1 % (21.3-54.2); Mean Corpuscular Hemoglobin 24 PG (27-34); Mean Corpuscular Volume 80.4 FL (87-102); Mean Platelet Volume 10.7 FL (9.6-12.0); Monocytes % 0.8 % (1.7-12.7); Neutrophils # 3.1 10*3/uL (1.4-7.4); Neutrophils % 65.7 % (38.7-73.9); Platelet Count 483 T/CUMM (130-400); Red Blood Count 4.89 MC/CUMM (3.8-5.5); White Blood Count 4.7 T/CUMM (4-12)
[2018-08-15 05:39] LABS: Albumin 2.7 G/DL (3.4-5.0); Bilirubin,Total 0.9 MG/DL (0.2-1.0); Calcium 9.2 MG/DL (8.5-10.1); Osmolality,Calculated 268.5 MOS/KG (273-304); Potassium 4.4 MMOL/L (3.5-5.1); Total Protein 7.7 G/DL (6.4-8.3)
[2018-08-15] MEDS: NITROFURANTOIN MACRO/MONO 100 MG CAPSULE PO SCH ×3 (09:03→20:18)
[2018-08-15] MEDS: ESCITALOPRAM 10 MG TABLET PO SCH ×2 (09:04→12:52)
[2018-08-15] MEDS: POTASSIUM CHLORIDE 20 MEQ TABLET PO SCH ×3 (09:04→20:18)
[2018-08-15] MEDS: ATORVASTATIN 10 MG TABLET PO SCH ×2 (09:04→12:52)
[2018-08-15] MEDS: DOCUSATE SODIUM 100 MG CAPSULE PO SCH ×3 (09:04→20:18)
[2018-08-15] MEDS: VALSARTAN 160 MG TABLET PO SCH ×2 (09:04→12:51)
[2018-08-15] MEDS: Liraglutide [Victoza 2-Pak] 1.2 MG SUBCUT SCH (09:05)
[2018-08-15] MEDS: PANTOPRAZOLE 40 MG VIAL IV SCH ×3 (09:06→20:11)
[2018-08-15] MEDS: prednisoLONE ACETATE 1% OPH SUSP 5 ML BOTTLE RIGHT EYE SCH ×4 (09:06→20:19)
[2018-08-15] MEDS: INSULIN LISPRO 100 UNIT/ML SUBCUT SCH ×4 (09:25→22:18)
[2018-08-15] MEDS ORDERED: PROMETHAZINE 25 MG TABLET PO PRN (19:51)
[2018-08-15] MEDS ORDERED: PROMETHAZINE 25 MG/1 ML VIAL IM PRN (20:17)
[2018-08-15] MEDS: INSULIN GLARGINE 100 UNIT/ML SUBCUT SCH (22:19)
[2018-08-16] MEDS: POTASSIUM CHLORIDE INJ 40 MEQ in SODIUM CHLORIDE 0.45% 1,000 ML IV SCH (05:50)
[2018-08-16] MEDS: INSULIN LISPRO 100 UNIT/ML SUBCUT SCH ×2 (09:20→13:14)
[2018-08-16] MEDS: DOCUSATE SODIUM 100 MG CAPSULE PO SCH (09:21)
[2018-08-16] MEDS: PANTOPRAZOLE 40 MG VIAL IV SCH (09:21)
[2018-08-16] MEDS: Liraglutide [Victoza 2-Pak] 1.2 MG SUBCUT SCH (09:21)
[2018-08-16] MEDS: ESCITALOPRAM 10 MG TABLET PO SCH (09:22)
[2018-08-16] MEDS: NITROFURANTOIN MACRO/MONO 100 MG CAPSULE PO SCH (09:22)
[2018-08-16] MEDS: ATORVASTATIN 10 MG TABLET PO SCH (09:22)
[2018-08-16] MEDS: POTASSIUM CHLORIDE 20 MEQ TABLET PO SCH (09:22)
[2018-08-16] MEDS: VALSARTAN 160 MG TABLET PO SCH (09:22)
[2018-08-16] MEDS: prednisoLONE ACETATE 1% OPH SUSP 5 ML BOTTLE RIGHT EYE SCH ×2 (09:22→13:15)
[2018-08-16 11:14] VITALS: BP 147/69
== END 2018-08-16 13:05 | disposition home or self-care (01) | DRG 375 ==
LOC: N.ICU 17:02 → N.5E 08-01 09:38 → N.4E 08-11 10:48
PROVIDERS: ADMIT Family Medicine; ATTEND Family Medicine

== ENCOUNTER 2018-08-17 01:30 | Inpatient (IN) ==
[2018-08-17] MEDS ORDERED: ONDANSETRON 4 MG/2 ML VIAL IV STA (02:12)
[2018-08-17] MEDS ORDERED: SODIUM CHLORIDE 0.9% 1,000 ML IV STA (02:12)
[2018-08-17 02:18] LABS: Basophils # 0.1 10*3/uL (0.0-0.2); Basophils % 1.8 % (0.0-0.8); Eosinophils # 0.1 10*3/uL (0.0-0.87); Eosinophils % 3.3 % (0.00-10.9); Hematocrit 38.9 VOL% (35.7-47.0); Hemoglobin 11.9 GM/DL (12.0-16.0); Immature Granulocytes % 2.2 %; Immature Granulocytes Absolute 0.06 #; Lymphocytes # 1.1 10*3/uL (1.4-4.0); Lymphocytes % 40.3 % (21.3-54.2); Mean Corpuscular HGB Conc 30.6 GM/DL (32-36); Mean Corpuscular Hemoglobin 25 PG (27-34); Mean Corpuscular Volume 80.4 FL (87-102); Mean Platelet Volume 10.7 FL (9.6-12.0); Monocytes # 0.1 10*3/uL (0.11-0.8); Monocytes % 1.8 % (1.7-12.7); Neutrophils # 1.4 10*3/uL (1.4-7.4); Neutrophils % 50.6 % (38.7-73.9); Platelet Count 439 T/CUMM (130-400); Red Blood Count 4.84 MC/CUMM (3.8-5.5); Red Cell Distribution Width 19.9 % (9.3-17.3); White Blood Count 2.7 T/CUMM (4-12)
[2018-08-17 02:34] LABS: Albumin 2.7 G/DL (3.4-5.0); Bilirubin,Total 0.8 MG/DL (0.2-1.0); Calcium 8.9 MG/DL (8.5-10.1); Osmolality,Calculated 279.5 MOS/KG (273-304); Potassium 4.7 MMOL/L (3.5-5.1); Total Protein 7.4 G/DL (6.4-8.3)
[2018-08-17 02:43] LABS: Band Neutrophils 1 % (0-10); Eosinophils 1 % (0-10); Giant Platelets Few; Lymphocytes 40 % (20-55); Metamyelocytes 1 %; Myelocytes 1 %; Segmented Neutrophils 54 % (50-85); Total Cells Counted 100
[2018-08-17 02:44] LABS: Burr Cells Few; Elliptocytes Few; Hypochromasia 1+
[2018-08-17 02:52] LABS: Reactive Lymphocytes 1+; Schistocytes Few
[2018-08-17 02:53] LABS: Platelet Estimate Increased; Poikilocytosis Few
[2018-08-17 03:47] LABS: Apearance,Urine CLEAR (Clear); Bilirubin,Urine Negative (Negative); Blood, Urine Negative (Negative); Glucose,Urine (UA) 50 mg/dL (Negative); Ketones,Urine 5 mg/dL (Negative); Nitrite,Urine Negative (Negative); Protein,Urine Negative; RBC,Urine 1 /HPF (0-4); Renal Epithelial Cells,Urine Occasional /HPF (<1); Squamous Epithelial Cell,Urine Occasional /HPF (0-10); Urine Color Yellow (Yellow); Urine Specific Gravity 1.011 (1.001-1.035); Urine Urobilinogen < 2.0 EU/DL (0.2-1.0); WBC,Urine 2 /HPF (0-6)
[2018-08-17 03:48] LABS: Bacteria,Urine Occasional /HPF (Few)
[2018-08-17] MEDS ORDERED: ONDANSETRON 4 MG/2 ML VIAL IV PRN (05:13)
[2018-08-17] MEDS ORDERED: DEXTROSE 5% NACL 0.9% 1,000 ML IV SCH (05:30)
[2018-08-17] MEDS ORDERED: PROMETHAZINE 25 MG TABLET PO PRN (07:19)
[2018-08-17] MEDS ORDERED: ACETAMINOPHEN 325 MG TABLET PO PRN (07:19)
[2018-08-17] MEDS ORDERED: ceFAZolin 2,000 MG in PREMIX 1 EACH IV ONE (07:28)
[2018-08-17] MEDS ORDERED: BUPIVACAINE MPF 0.25% /EPI 30 ML VIAL ONE (12:13)
[2018-08-17] MEDS ORDERED: LIDOCAINE 1%/EPI INJ 20 ML VIAL ONE (12:13)
[2018-08-17] MEDS ORDERED: TISSUE ADHESIVE 1 EACH APPLICATOR TOP ONE (12:13)
[2018-08-17] MEDS ORDERED: HEPARIN 5,000 UNIT/1 ML VIAL ONE (12:13)
[2018-08-17] MEDS ORDERED: ceFAZolin 1,000 MG VIAL ONE (12:55)
[2018-08-17] MEDS ORDERED: fentaNYL 100 MCG/2 ML VIAL ONE (13:37)
[2018-08-17] MEDS ORDERED: MIDAZOLAM 2 MG/2 ML VIAL ONE (13:37)
[2018-08-17] MEDS: KETOROLAC 30 MG/1 ML VIAL IV PRN ×2 (15:39→21:42)
[2018-08-17] MEDS: METOCLOPRAMIDE 10 MG/2 ML VIAL IV SCH ×3 (15:39→21:03)
[2018-08-17] MEDS: DOCUSATE SODIUM 100 MG CAPSULE PO SCH ×2 (16:59→21:07)
[2018-08-17] MEDS: ESCITALOPRAM 10 MG TABLET PO SCH (17:00)
[2018-08-17] MEDS: INSULIN GLARGINE 100 UNIT/ML SUBCUT SCH ×2 (17:00→21:06)
[2018-08-17] MEDS: VALSARTAN 160 MG TABLET PO SCH (17:00)
[2018-08-17] MEDS: ATORVASTATIN 10 MG TABLET PO SCH (17:00)
[2018-08-17] MEDS: NITROFURANTOIN MACRO/MONO 100 MG CAPSULE PO SCH ×2 (17:00→21:07)
[2018-08-17] MEDS: PANTOPRAZOLE 40 MG TABLET PO SCH (17:01)
[2018-08-17] MEDS: ONDANSETRON ODT 4 MG TABLET PO SCH ×3 (17:01→21:08)
[2018-08-17] MEDS: prednisoLONE ACETATE 1% OPH SUSP 5 ML BOTTLE RIGHT EYE SCH ×2 (17:01→21:07)
[2018-08-17] MEDS: FILGRASTIM-SNDZ 300 MCG/0.5 ML SYRINGE SUBCUT SCH (17:27)
[2018-08-17] MEDS ORDERED: DEXTROSE 50% 25 GM/50 ML VIAL IV PRN (22:35)
[2018-08-17] MEDS ORDERED: GLUCAGON 1 MG VIAL IM PRN (22:35)
[2018-08-17] MEDS: INSULIN LISPRO 100 UNIT/ML SUBCUT SCH (22:52)
[2018-08-18] MEDS ORDERED: SODIUM CHLORIDE 0.9% 1,000 ML IV SCH (01:30)
[2018-08-18 05:32] LABS: Albumin 2.2 G/DL (3.4-5.0); Bilirubin,Total 0.8 MG/DL (0.2-1.0); Calcium 7.9 MG/DL (8.5-10.1); Osmolality,Calculated 277.4 MOS/KG (273-304); Potassium 4.4 MMOL/L (3.5-5.1); Total Protein 6.1 G/DL (6.4-8.3)
[2018-08-18 07:41] LABS: Basophils # 0.1 10*3/uL (0.0-0.2); Basophils % 0.7 % (0.0-0.8); Eosinophils # 0.1 10*3/uL (0.0-0.87); Eosinophils % 1.4 % (0.00-10.9); Hematocrit 34.5 VOL% (35.7-47.0); Hemoglobin 10.4 GM/DL (12.0-16.0); Immature Granulocytes % 0.8 %; Immature Granulocytes Absolute 0.06 #; Lymphocytes # 0.9 10*3/uL (1.4-4.0); Lymphocytes % 11.2 % (21.3-54.2); Mean Corpuscular HGB Conc 30.1 GM/DL (32-36); Mean Corpuscular Hemoglobin 25 PG (27-34); Mean Corpuscular Volume 81.2 FL (87-102); Monocytes # 0.1 10*3/uL (0.11-0.8); Monocytes % 1.4 % (1.7-12.7); Neutrophils # 6.4 10*3/uL (1.4-7.4); Neutrophils % 84.5 % (38.7-73.9); Platelet Count 342 T/CUMM (130-400); Red Blood Count 4.25 MC/CUMM (3.8-5.5); Red Cell Distribution Width 19.3 % (9.3-17.3); White Blood Count 7.6 T/CUMM (4-12)
[2018-08-18 08:09] LABS: Acanthocytes Few; Band Neutrophils 13 % (0-10); Eosinophils 2 % (0-10); Hypochromasia Slight; Lymphocytes 11 % (20-55); Ovalocytes Few; Platelet Estimate Normal; Polychromasia Slight; Schistocytes Slight; Segmented Neutrophils 73 % (50-85); Total Cells Counted 100
[2018-08-18 09:22] VITALS: BP 109/55
[2018-08-18] MEDS: INSULIN LISPRO 100 UNIT/ML SUBCUT SCH (09:23)
[2018-08-18] MEDS: FILGRASTIM-SNDZ 300 MCG/0.5 ML SYRINGE SUBCUT SCH (09:23)
[2018-08-18] MEDS: METOCLOPRAMIDE 10 MG/2 ML VIAL IV SCH (09:24)
[2018-08-18] MEDS: KETOROLAC 30 MG/1 ML VIAL IV PRN (09:27)
[2018-08-18] MEDS: DOCUSATE SODIUM 100 MG CAPSULE PO SCH (09:33)
[2018-08-18] MEDS: PANTOPRAZOLE 40 MG TABLET PO SCH (09:33)
[2018-08-18] MEDS: INSULIN GLARGINE 100 UNIT/ML SUBCUT SCH (09:33)
[2018-08-18] MEDS: VALSARTAN 160 MG TABLET PO SCH (09:33)
[2018-08-18] MEDS: ESCITALOPRAM 10 MG TABLET PO SCH (09:33)
[2018-08-18] MEDS: NITROFURANTOIN MACRO/MONO 100 MG CAPSULE PO SCH (09:33)
[2018-08-18] MEDS: ATORVASTATIN 10 MG TABLET PO SCH (09:33)
[2018-08-18] MEDS: ONDANSETRON ODT 4 MG TABLET PO SCH (09:34)
== END 2018-08-18 12:30 | disposition home or self-care (01) | DRG 983 ==
LOC: EDBD → EDUNIT# → N.ED 01:30 → N.EDINP 05:13 → N.5E 05:37 → N.4E 08:56
PROVIDERS: ADMIT Family Medicine; ATTEND Family Medicine

== ENCOUNTER 2018-10-23 13:47 | Inpatient (IN) ==
[2018-10-23 14:30] LABS: Basophils % 0.6 % (0.0-0.8); Eosinophils # 0.1 10*3/uL (0.0-0.87); Eosinophils % 2.7 % (0.00-10.9); Hemoglobin 10.1 GM/DL (12.0-16.0); Immature Granulocytes % 0.6 %; Immature Granulocytes Absolute 0.02 #; Lymphocytes % 31.4 % (21.3-54.2); Mean Corpuscular HGB Conc 30.6 GM/DL (32-36); Mean Corpuscular Hemoglobin 27 PG (27-34); Mean Corpuscular Volume 88.7 FL (87-102); Mean Platelet Volume 9.9 FL (9.6-12.0); Monocytes # 0.1 10*3/uL (0.11-0.8); Monocytes % 3.9 % (1.7-12.7); Neutrophils % 60.8 % (38.7-73.9); Platelet Count 290 T/CUMM (130-400); Red Blood Count 3.72 MC/CUMM (3.8-5.5); White Blood Count 3.3 T/CUMM (4-12)
[2018-10-23 14:41] LABS: INR 0.9; PT Patient Result 10.2 SECS
[2018-10-23 14:50] LABS: Albumin 3.3 G/DL (3.4-5.0); Bilirubin,Total 0.6 MG/DL (0.2-1.0); Calcium 8.8 MG/DL (8.5-10.1); Osmolality,Calculated 279.1 MOS/KG (273-304); Potassium 4.1 MMOL/L (3.5-5.1)
[2018-10-23] MEDS ORDERED: SODIUM CHLORIDE 0.9% 500 ML IV STA (16:24)
[2018-10-23] MEDS ORDERED: ONDANSETRON 4 MG/2 ML VIAL IV STA (16:24)
[2018-10-23] MEDS ORDERED: PANTOPRAZOLE 40 MG VIAL IV STA (16:24)
[2018-10-23] MEDS ORDERED: MAGNESIUM SULF RIDER 2 GM in PREMIX 1 EACH IV STA (16:49)
[2018-10-23 17:58] LABS: Apearance,Urine CLOUDY (Clear); Bacteria,Urine Moderate /HPF (Few); Bilirubin,Urine Negative (Negative); Blood, Urine Negative (Negative); Glucose,Urine (UA) >=500 mg/dL (Negative); Hyaline Casts,Urine 3 /LPF (0-3); Ketones,Urine 20 mg/dL (Negative); Mucus,Urine Occasional /LPF (Occasional); Nitrite,Urine Positive (Negative); Protein,Urine Negative; RBC,Urine 10 /HPF (0-4); Squamous Epithelial Cell,Urine Occasional /HPF (0-10); Urine Color Yellow (Yellow); Urine Specific Gravity 1.024 (1.001-1.035); Urine Urobilinogen < 2.0 EU/DL (0.2-1.0); WBC,Urine 174 /HPF (0-6)
[2018-10-23] MEDS ORDERED: cefTRIAXone 1,000 MG in SODIUM CHLORIDE 0.9% 100 ML IV STA (18:25)
[2018-10-23] MEDS ORDERED: VALSARTAN 160 MG TABLET PO PRN (19:41)
[2018-10-23] MEDS ORDERED: ONDANSETRON 4 MG/2 ML VIAL IV PRN (19:41)
[2018-10-23] MEDS ORDERED: ACETAMINOPHEN 325 MG TABLET PO PRN ×2 (19:41)
[2018-10-23] MEDS ORDERED: MORPHINE 4 MG/1 ML VIAL IV PRN (19:41)
[2018-10-23] MEDS ORDERED: GLUCAGON 1 MG VIAL IM PRN (19:41)
[2018-10-23] MEDS ORDERED: DEXTROSE 50% 25 GM/50 ML VIAL IV PRN (19:41)
[2018-10-23] MEDS: INSULIN GLARGINE 100 UNIT/ML SUBCUT SCH (21:52)
[2018-10-23] MEDS: INSULIN REGULAR 100 UNIT/ML SUBCUT SCH (21:52)
[2018-10-23] MEDS: DOCUSATE SODIUM 100 MG CAPSULE PO SCH (21:56)
[2018-10-23] MEDS: SODIUM CHLORIDE 0.9% 1,000 ML IV SCH (23:15)
[2018-10-23 23:55] LABS: HIV Antigen/Antibody Result Nonreactive (Nonreactive); Hepatitis B Surface Ag Result Negative (Negative); Hepatitis C Virus Ab Quant 0.06 Index; Hepatitis C Virus Ab Result Negative (Negative)
[2018-10-24 05:00] LABS: Basophils % 0.3 % (0.0-0.8); Eosinophils # 0.1 10*3/uL (0.0-0.87); Eosinophils % 1.9 % (0.00-10.9); Hematocrit 29.5 VOL% (35.7-47.0); Hemoglobin 9.3 GM/DL (12.0-16.0); Immature Granulocytes % 0.8 %; Immature Granulocytes Absolute 0.03 #; Lymphocytes # 0.9 10*3/uL (1.4-4.0); Lymphocytes % 24.7 % (21.3-54.2); Mean Corpuscular HGB Conc 31.5 GM/DL (32-36); Mean Corpuscular Hemoglobin 28 PG (27-34); Mean Corpuscular Volume 88.1 FL (87-102); Mean Platelet Volume 9.7 FL (9.6-12.0); Monocytes # 0.2 10*3/uL (0.11-0.8); Monocytes % 6.4 % (1.7-12.7); Neutrophils # 2.4 10*3/uL (1.4-7.4); Neutrophils % 65.9 % (38.7-73.9); Platelet Count 285 T/CUMM (130-400); Red Blood Count 3.35 MC/CUMM (3.8-5.5); Red Cell Distribution Width 21.6 % (9.3-17.3); White Blood Count 3.6 T/CUMM (4-12)
[2018-10-24 05:27] LABS: Albumin 2.8 G/DL (3.4-5.0); Bilirubin,Total 0.4 MG/DL (0.2-1.0); Calcium 8.6 MG/DL (8.5-10.1); Osmolality,Calculated 275.8 MOS/KG (273-304); Potassium 3.9 MMOL/L (3.5-5.1); Total Protein 7.6 G/DL (6.4-8.3)
[2018-10-24] MEDS: SODIUM CHLORIDE 0.9% 1,000 ML IV SCH ×3 (06:05→21:45)
[2018-10-24] MEDS: ATORVASTATIN 10 MG TABLET PO SCH (08:28)
[2018-10-24] MEDS: ESCITALOPRAM 10 MG TABLET PO SCH (08:28)
[2018-10-24] MEDS: INSULIN GLARGINE 100 UNIT/ML SUBCUT SCH ×2 (08:28→21:02)
[2018-10-24] MEDS: PANTOPRAZOLE 40 MG TABLET PO SCH (08:28)
[2018-10-24] MEDS: DOCUSATE SODIUM 100 MG CAPSULE PO SCH ×2 (08:31→23:21)
[2018-10-24] MEDS: INSULIN REGULAR 100 UNIT/ML SUBCUT SCH ×4 (08:52→23:21)
[2018-10-24] MEDS ORDERED: Liraglutide [Victoza 2-Pak] 1.2 MG PO SCH (09:00)
[2018-10-24] MEDS: FILGRASTIM-SNDZ 300 MCG/0.5 ML SYRINGE SUBCUT SCH (09:38)
[2018-10-24] MEDS ORDERED: cefTRIAXone 1,000 MG in SYRINGE 1 EACH IV SCH (21:00)
[2018-10-25] MEDS: SODIUM CHLORIDE 0.9% 1,000 ML IV SCH (05:57)
[2018-10-25 08:56] LABS: Basophils % 0.3 % (0.0-0.8); Eosinophils # 0.1 10*3/uL (0.0-0.87); Eosinophils % 0.7 % (0.00-10.9); Hematocrit 27.5 VOL% (35.7-47.0); Hemoglobin 8.5 GM/DL (12.0-16.0); Immature Granulocytes Absolute 0.23 #; Lymphocytes # 1.3 10*3/uL (1.4-4.0); Lymphocytes % 11.4 % (21.3-54.2); Mean Corpuscular HGB Conc 30.9 GM/DL (32-36); Mean Corpuscular Hemoglobin 28 PG (27-34); Mean Corpuscular Volume 90.2 FL (87-102); Mean Platelet Volume 9.4 FL (9.6-12.0); Monocytes # 0.6 10*3/uL (0.11-0.8); Monocytes % 5.2 % (1.7-12.7); Neutrophils # 9.3 10*3/uL (1.4-7.4); Neutrophils % 80.4 % (38.7-73.9); Platelet Count 268 T/CUMM (130-400); Red Blood Count 3.05 MC/CUMM (3.8-5.5); Red Cell Distribution Width 22.2 % (9.3-17.3); White Blood Count 11.6 T/CUMM (4-12)
[2018-10-25] MEDS: INSULIN REGULAR 100 UNIT/ML SUBCUT SCH ×2 (09:09→12:24)
[2018-10-25] MEDS: DOCUSATE SODIUM 100 MG CAPSULE PO SCH (09:20)
[2018-10-25] MEDS: INSULIN GLARGINE 100 UNIT/ML SUBCUT SCH (09:21)
[2018-10-25] MEDS: ESCITALOPRAM 10 MG TABLET PO SCH (09:21)
[2018-10-25] MEDS: FILGRASTIM-SNDZ 300 MCG/0.5 ML SYRINGE SUBCUT SCH (09:21)
[2018-10-25 09:22] LABS: Alanine Aminotransferase 15 U/L (13-56); Albumin 2.7 G/DL (3.4-5.0); Alkaline Phosphatase 92 U/L (45-117); Aspartate Amino Transferase 11 U/L (0-37); Bilirubin,Total < 0.39 MG/DL (0.2-1.0); Blood Urea Nitrogen 14 MG/DL (7-18); Calcium 7.6 MG/DL (8.5-10.1); Glucose 173 MG/DL (74-106); Potassium 3.3 MMOL/L (3.5-5.1); Sodium 136 MMOL/L (136-145); Total Protein 6.6 G/DL (6.4-8.3)
[2018-10-25] MEDS: PANTOPRAZOLE 40 MG TABLET PO SCH (09:22)
[2018-10-25] MEDS: ATORVASTATIN 10 MG TABLET PO SCH (09:22)
[2018-10-25 09:25] LABS: Band Neutrophils 3 % (0-10); Eosinophils 1 % (0-10); Lymphocytes 11 % (20-55); Platelet Estimate Adequate; Segmented Neutrophils 82 % (50-85); Total Cells Counted 100
[2018-10-25 09:26] LABS: Hypochromasia 1+
[2018-10-25 12:24] VITALS: BP 147/69
[2018-10-25] MEDS ORDERED: INFLUENZA VIRUS VACCINE 0.5 ML SYRINGE IM ONE (13:47)
== END 2018-10-25 14:28 | disposition home or self-care (01) | DRG 690 ==
LOC: N.ED 13:47 → N.EDINP 18:26 → N.4E 19:30
PROVIDERS: ADMIT Family Medicine; ATTEND Family Medicine

== ENCOUNTER 2018-11-19 04:04 | Inpatient (IN) ==
[2018-11-19] MEDS ORDERED: SODIUM CHLORIDE 0.9% 1,000 ML IV STA (04:50)
[2018-11-19 05:03] LABS: Basophils % 0.9 % (0.0-0.8); Hematocrit 35.4 VOL% (35.7-47.0); Hemoglobin 11.5 GM/DL (12.0-16.0); Immature Granulocytes % 6.3 %; Lymphocytes # 0.6 10*3/uL (1.4-4.0); Lymphocytes % 20.1 % (21.3-54.2); Mean Corpuscular HGB Conc 32.5 GM/DL (32-36); Mean Corpuscular Hemoglobin 30 PG (27-34); Mean Corpuscular Volume 91.2 FL (87-102); Mean Platelet Volume 10.2 FL (9.6-12.0); Monocytes # 0.1 10*3/uL (0.11-0.8); Monocytes % 2.2 % (1.7-12.7); Neutrophils # 2.2 10*3/uL (1.4-7.4); Neutrophils % 70.5 % (38.7-73.9); Platelet Count 344 T/CUMM (130-400); Red Blood Count 3.88 MC/CUMM (3.8-5.5); Red Cell Distribution Width 16.4 % (9.3-17.3); White Blood Count 3.2 T/CUMM (4-12)
[2018-11-19 05:06] LABS: ABG Base Excess 0.3 MMOL/L (-2.5-2.5); ABG HCO3 24.7 MMOL/L (20-26); ABG Oxygen Saturation 98.9 % (95-100); ABG TCO2 19.2 MMOL/L (23-27)
[2018-11-19 05:16] LABS: PT Patient Result 10.4 SECS; Partial Thromboplastin Time 21.2 SECS (0-40)
[2018-11-19 05:40] LABS: Band Neutrophils 1 % (0-10); Eosinophils 1 % (0-10); Lymphocytes 16 % (20-55); Segmented Neutrophils 82 % (50-85); Total Cells Counted 100
[2018-11-19 05:41] LABS: Hypochromasia 1+; Ovalocytes Slight; Platelet Estimate Adequate
[2018-11-19 05:49] LABS: Apearance,Urine CLEAR (Clear); Bacteria,Urine Many /HPF (Few); Bilirubin,Urine Negative (Negative); Blood, Urine Negative (Negative); Glucose,Urine (UA) >=500 mg/dL (Negative); Ketones,Urine 20 mg/dL (Negative); Mucus,Urine Occasional /LPF (Occasional); Nitrite,Urine Positive (Negative); Protein,Urine Negative; RBC,Urine 6 /HPF (0-4); Squamous Epithelial Cell,Urine Occasional /HPF (0-10); Urine Color Yellow (Yellow); Urine Specific Gravity 1.028 (1.001-1.035); Urine Urobilinogen < 2.0 EU/DL (0.2-1.0); WBC,Urine 11 /HPF (0-6)
[2018-11-19 05:49] LABS: Albumin 3.5 G/DL (3.4-5.0); Bilirubin,Total 0.7 MG/DL (0.2-1.0); Calcium 9.3 MG/DL (8.5-10.1); Osmolality,Calculated 295.7 MOS/KG (273-304); Total Protein 8.5 G/DL (6.4-8.3)
[2018-11-19] MEDS ORDERED: hydrALAZINE 20 MG/1 ML VIAL IV STA (05:50)
[2018-11-19] MEDS ORDERED: INSULIN REGULAR 100 UNIT/ML IV STA (05:53)
[2018-11-19] MEDS ORDERED: ONDANSETRON 4 MG/2 ML VIAL IV PRN (05:58)
[2018-11-19] MEDS ORDERED: ACETAMINOPHEN 325 MG TABLET PO PRN (05:58)
[2018-11-19] MEDS ORDERED: DEXTROSE 50% 25 GM/50 ML VIAL IV PRN (06:01)
[2018-11-19] MEDS ORDERED: GLUCAGON 1 MG VIAL IM PRN (06:01)
[2018-11-19] MEDS: SODIUM CHLORIDE 0.9% 1,000 ML IV SCH ×2 (08:00→17:50)
[2018-11-19] MEDS ORDERED: PANTOPRAZOLE 40 MG TABLET PO SCH (09:00)
[2018-11-19] MEDS ORDERED: VALSARTAN 160 MG TABLET PO PRN (10:25)
[2018-11-19] MEDS ORDERED: NF- (Liraglutide [Victoza 2-Pak] 1.2 MG) PO SCH (10:30)
[2018-11-19] MEDS: PANTOPRAZOLE 40 MG VIAL IV SCH (11:40)
[2018-11-19] MEDS ORDERED: METOPROLOL TARTRATE 25 MG TABLET PO ONE (11:44)
[2018-11-19] MEDS: INSULIN REGULAR 100 UNIT/ML SUBCUT SCH ×3 (12:21→23:57)
[2018-11-19] MEDS: INSULIN GLARGINE 100 UNIT/ML SUBCUT SCH ×2 (12:22→21:00)
[2018-11-19] MEDS: cefTRIAXone 1,000 MG in SYRINGE 1 EACH IV SCH (12:22)
[2018-11-19] MEDS: ONDANSETRON 4 MG/2 ML VIAL IV PRN ×2 (15:21→21:01)
[2018-11-19] MEDS: METOPROLOL TARTRATE 25 MG TABLET PO SCH (21:03)
[2018-11-20] MEDS: SODIUM CHLORIDE 0.9% 1,000 ML IV SCH (01:41)
[2018-11-20 05:07] LABS: Basophils % 0.6 % (0.0-0.8); Eosinophils # 0.2 10*3/uL (0.0-0.87); Hematocrit 30.5 VOL% (35.7-47.0); Hemoglobin 9.6 GM/DL (12.0-16.0); Immature Granulocytes % 1.2 %; Immature Granulocytes Absolute 0.06 #; Lymphocytes # 1.3 10*3/uL (1.4-4.0); Lymphocytes % 24.8 % (21.3-54.2); Mean Corpuscular HGB Conc 31.5 GM/DL (32-36); Mean Corpuscular Hemoglobin 29 PG (27-34); Mean Corpuscular Volume 93.6 FL (87-102); Mean Platelet Volume 10.8 FL (9.6-12.0); Monocytes # 0.2 10*3/uL (0.11-0.8); Monocytes % 3.2 % (1.7-12.7); Neutrophils # 3.4 10*3/uL (1.4-7.4); Neutrophils % 67.2 % (38.7-73.9); Platelet Count 282 T/CUMM (130-400); Red Blood Count 3.26 MC/CUMM (3.8-5.5); Red Cell Distribution Width 16.3 % (9.3-17.3); White Blood Count 5.1 T/CUMM (4-12)
[2018-11-20 05:09] LABS: Bilirubin,Total 0.7 MG/DL (0.2-1.0); Calcium 8.4 MG/DL (8.5-10.1); Osmolality,Calculated 285.4 MOS/KG (273-304); Potassium 2.9 MMOL/L (3.5-5.1); Total Protein 6.9 G/DL (6.4-8.3)
[2018-11-20] MEDS: ONDANSETRON 4 MG/2 ML VIAL IV PRN ×2 (05:22→12:10)
[2018-11-20] MEDS: cefTRIAXone 1,000 MG in SYRINGE 1 EACH IV SCH (05:23)
[2018-11-20] MEDS: INSULIN REGULAR 100 UNIT/ML SUBCUT SCH ×3 (05:37→19:16)
[2018-11-20] MEDS: ATORVASTATIN 10 MG TABLET PO SCH ×2 (09:02→14:44)
[2018-11-20] MEDS: ESCITALOPRAM 10 MG TABLET PO SCH ×2 (09:02→14:44)
[2018-11-20] MEDS: PANTOPRAZOLE 40 MG VIAL IV SCH (09:02)
[2018-11-20] MEDS: METOPROLOL TARTRATE 25 MG TABLET PO SCH ×3 (09:04→21:18)
[2018-11-20] MEDS: DEXT 5% NACL 0.45% KCL 20 MEQ 20 MEQ/1,000 ML BAG IV SCH (09:04)
[2018-11-20] MEDS: INSULIN GLARGINE 100 UNIT/ML SUBCUT SCH ×2 (10:53→20:52)
[2018-11-20] MEDS ORDERED: PROMETHAZINE INJ 25 MG in SODIUM CHLORIDE 0.9% 50 ML IV PRN (11:35)
[2018-11-21] MEDS: DEXT 5% NACL 0.45% KCL 20 MEQ 20 MEQ/1,000 ML BAG IV SCH ×4 (01:46→19:23)
[2018-11-21] MEDS: INSULIN REGULAR 100 UNIT/ML SUBCUT SCH ×4 (01:47→18:29)
[2018-11-21] MEDS: ONDANSETRON 4 MG/2 ML VIAL IV PRN ×2 (06:13→17:44)
[2018-11-21] MEDS: cefTRIAXone 1,000 MG in SYRINGE 1 EACH IV SCH (06:15)
[2018-11-21 08:20] LABS: Basophils % 0.4 % (0.0-0.8); Eosinophils # 0.1 10*3/uL (0.0-0.87); Hematocrit 28.8 VOL% (35.7-47.0); Immature Granulocytes % 0.4 %; Immature Granulocytes Absolute 0.01 #; Lymphocytes # 1.3 10*3/uL (1.4-4.0); Lymphocytes % 44.8 % (21.3-54.2); Mean Corpuscular HGB Conc 31.3 GM/DL (32-36); Mean Corpuscular Hemoglobin 29 PG (27-34); Mean Corpuscular Volume 93.8 FL (87-102); Mean Platelet Volume 10.8 FL (9.6-12.0); Monocytes # 0.2 10*3/uL (0.11-0.8); Monocytes % 7.5 % (1.7-12.7); Neutrophils # 1.2 10*3/uL (1.4-7.4); Neutrophils % 41.9 % (38.7-73.9); Platelet Count 239 T/CUMM (130-400); Red Blood Count 3.07 MC/CUMM (3.8-5.5); Red Cell Distribution Width 15.7 % (9.3-17.3); White Blood Count 2.8 T/CUMM (4-12)
[2018-11-21 08:53] LABS: Alanine Aminotransferase 14 U/L (13-56); Albumin 2.6 G/DL (3.4-5.0); Alkaline Phosphatase 75 U/L (45-117); Aspartate Amino Transferase 10 U/L (0-37); Bilirubin,Total < 0.39 MG/DL (0.2-1.0); Blood Urea Nitrogen 14 MG/DL (7-18); Calcium 7.7 MG/DL (8.5-10.1); Glucose 307 MG/DL (74-106); Osmolality,Calculated 274.7 MOS/KG (273-304); Potassium 4.2 MMOL/L (3.5-5.1); Sodium 131 MMOL/L (136-145); Total Protein 6.4 G/DL (6.4-8.3)
[2018-11-21 09:02] LABS: Anisocytosis 1+; Platelet Estimate Normal; Poikilocytosis Slight
[2018-11-21] MEDS: INSULIN GLARGINE 100 UNIT/ML SUBCUT SCH ×2 (09:30→20:41)
[2018-11-21] MEDS: METOPROLOL TARTRATE 25 MG TABLET PO SCH ×2 (10:19→20:41)
[2018-11-21] MEDS: PANTOPRAZOLE 40 MG VIAL IV SCH (10:19)
[2018-11-21] MEDS: ATORVASTATIN 10 MG TABLET PO SCH (10:19)
[2018-11-21] MEDS: ESCITALOPRAM 10 MG TABLET PO SCH (10:19)
[2018-11-21] MEDS: FILGRASTIM-SNDZ 300 MCG/0.5 ML SYRINGE SUBCUT SCH (11:49)
[2018-11-22] MEDS: INSULIN REGULAR 100 UNIT/ML SUBCUT SCH ×4 (00:35→19:34)
[2018-11-22 04:03] LABS: Basophils # 0.1 10*3/uL (0.0-0.2); Basophils % 0.5 % (0.0-0.8); Eosinophils # 0.2 10*3/uL (0.0-0.87); Eosinophils % 1.5 % (0.00-10.9); Hematocrit 29.8 VOL% (35.7-47.0); Hemoglobin 9.4 GM/DL (12.0-16.0); Immature Granulocytes % 0.9 %; Lymphocytes # 1.9 10*3/uL (1.4-4.0); Mean Corpuscular HGB Conc 31.5 GM/DL (32-36); Mean Corpuscular Hemoglobin 29 PG (27-34); Mean Corpuscular Volume 93.1 FL (87-102); Mean Platelet Volume 10.3 FL (9.6-12.0); Monocytes # 0.5 10*3/uL (0.11-0.8); Monocytes % 4.9 % (1.7-12.7); Neutrophils % 74.2 % (38.7-73.9); Platelet Count 227 T/CUMM (130-400); Red Cell Distribution Width 15.3 % (9.3-17.3); White Blood Count 10.7 T/CUMM (4-12)
[2018-11-22] MEDS: DEXT 5% NACL 0.45% KCL 20 MEQ 20 MEQ/1,000 ML BAG IV SCH ×3 (04:07→21:17)
[2018-11-22 04:22] LABS: Alanine Aminotransferase 13 U/L (13-56); Albumin 2.7 G/DL (3.4-5.0); Alkaline Phosphatase 77 U/L (45-117); Aspartate Amino Transferase 12 U/L (0-37); Bilirubin,Total < 0.39 MG/DL (0.2-1.0); Blood Urea Nitrogen 12 MG/DL (7-18); Calcium 8.1 MG/DL (8.5-10.1); Glucose 122 MG/DL (74-106); Osmolality,Calculated 270.1 MOS/KG (273-304); Potassium 3.8 MMOL/L (3.5-5.1); Sodium 135 MMOL/L (136-145); Total Protein 6.5 G/DL (6.4-8.3)
[2018-11-22 04:39] LABS: Platelet Estimate Normal
[2018-11-22 04:40] LABS: Polychromasia Few
[2018-11-22] MEDS: cefTRIAXone 1,000 MG in SYRINGE 1 EACH IV SCH (06:17)
[2018-11-22 09:20] LABS: Basophils # 0.1 10*3/uL (0.0-0.2); Basophils % 0.5 % (0.0-0.8); Eosinophils # 0.2 10*3/uL (0.0-0.87); Eosinophils % 1.5 % (0.00-10.9); Hematocrit 30.9 VOL% (35.7-47.0); Hemoglobin 9.9 GM/DL (12.0-16.0); Immature Granulocytes % 0.6 %; Immature Granulocytes Absolute 0.07 #; Lymphocytes # 1.8 10*3/uL (1.4-4.0); Lymphocytes % 14.5 % (21.3-54.2); Mean Corpuscular Hemoglobin 30 PG (27-34); Mean Corpuscular Volume 93.1 FL (87-102); Monocytes # 0.7 10*3/uL (0.11-0.8); Monocytes % 5.8 % (1.7-12.7); Neutrophils # 9.3 10*3/uL (1.4-7.4); Neutrophils % 77.1 % (38.7-73.9); Platelet Count 228 T/CUMM (130-400); Red Blood Count 3.32 MC/CUMM (3.8-5.5); Red Cell Distribution Width 15.5 % (9.3-17.3); White Blood Count 12.1 T/CUMM (4-12)
[2018-11-22] MEDS ORDERED: SODIUM CHLORIDE 0.9% 1,000 ML IV SCH (09:30)
[2018-11-22 09:31] LABS: PT Patient Result 10.9 SECS; Partial Thromboplastin Time 22.2 SECS (0-40)
[2018-11-22 09:43] LABS: Band Neutrophils 2 % (0-10); Eosinophils 2 % (0-10); Hypochromasia 1+; Lymphocytes 21 % (20-55); Ovalocytes Slight; Platelet Estimate Adequate; Segmented Neutrophils 71 % (50-85); Total Cells Counted 100
[2018-11-22 09:57] LABS: Alanine Aminotransferase 13 U/L (13-56); Albumin 2.8 G/DL (3.4-5.0); Alkaline Phosphatase 84 U/L (45-117); Aspartate Amino Transferase 12 U/L (0-37); Bilirubin,Total < 0.39 MG/DL (0.2-1.0); Blood Urea Nitrogen 13 MG/DL (7-18); Calcium 7.9 MG/DL (8.5-10.1); Glucose 179 MG/DL (74-106); Osmolality,Calculated 273.1 MOS/KG (273-304); Potassium 3.7 MMOL/L (3.5-5.1); Sodium 135 MMOL/L (136-145); Total Protein 6.7 G/DL (6.4-8.3)
[2018-11-22] MEDS: ONDANSETRON 4 MG/2 ML VIAL IV PRN (12:48)
[2018-11-22] MEDS: INSULIN GLARGINE 100 UNIT/ML SUBCUT SCH ×2 (12:53→21:19)
[2018-11-22] MEDS: METOPROLOL TARTRATE 25 MG TABLET PO SCH ×2 (12:55→21:19)
[2018-11-22] MEDS: ESCITALOPRAM 10 MG TABLET PO SCH (12:55)
[2018-11-22] MEDS: ATORVASTATIN 10 MG TABLET PO SCH (12:55)
[2018-11-22] MEDS: PANTOPRAZOLE 40 MG VIAL IV SCH (12:56)
[2018-11-22] MEDS: FILGRASTIM-SNDZ 300 MCG/0.5 ML SYRINGE SUBCUT SCH (12:58)
[2018-11-22] MEDS: ASPIRIN 325 MG TABLET PO SCH (13:24)
[2018-11-22] MEDS ORDERED: BENZTROPINE 2 MG/2 ML AMP IV PRN (15:06)
[2018-11-22] MEDS ORDERED: ONDANSETRON 4 MG/2 ML VIAL IV PRN (15:06)
[2018-11-22] MEDS ORDERED: chlorproMAZINE INJ 25 MG in SODIUM CHLORIDE 0.9% 100 ML IV PRN (15:06)
[2018-11-22] MEDS ORDERED: MYLANTA/LIDO VISC 2:1 300 ML BOTTLE SWISH/SWAL PRN (15:06)
[2018-11-22] MEDS ORDERED: PROMETHAZINE INJ 25 MG in SODIUM CHLORIDE 0.9% 50 ML IV PRN (15:06)
[2018-11-22] MEDS ORDERED: MAGNESIUM HYDROXIDE SUSP 30 ML UDCUP PO PRN (15:06)
[2018-11-22] MEDS ORDERED: diphenhydrAMINE CAP 25 MG CAPSULE PO PRN (15:06)
[2018-11-22] MEDS ORDERED: ALPRAZolam 0.25 MG TABLET PO PRN (15:06)
[2018-11-22] MEDS ORDERED: ALUMINUM/MAGNES/SIMETH MAX STR 30 ML UDCUP PO PRN (15:06)
[2018-11-22] MEDS ORDERED: traMADol 50 MG TABLET PO PRN (15:06)
[2018-11-22] MEDS ORDERED: ACETAMINOPHEN 325 MG TABLET PO PRN (15:06)
[2018-11-22] MEDS ORDERED: TEMAZEPAM 7.5 MG CAPSULE PO PRN (15:06)
[2018-11-22] MEDS ORDERED: MYLANTA/LIDO VISC 2:1 300 ML BOTTLE SWISH/SPIT PRN (15:06)
[2018-11-22] MEDS ORDERED: LACTULOSE 20 GM/30 ML UDCUP PO PRN (15:06)
[2018-11-22] MEDS ORDERED: chlorproMAZINE 25 MG TABLET PO PRN (15:06)
[2018-11-22] MEDS ORDERED: chlorproMAZINE INJ 50 MG in SODIUM CHLORIDE 0.9% 100 ML IV PRN (15:06)
[2018-11-22] MEDS ORDERED: guaiFENesin 200 MG/10 ML UDCUP PO PRN (15:06)
[2018-11-22] MEDS ORDERED: LOPERAMIDE 2 MG CAPSULE PO PRN ×2 (15:06)
[2018-11-22] MEDS ORDERED: APIXABAN 2.5 MG TABLET PO SCH (21:00)
[2018-11-23] MEDS: INSULIN REGULAR 100 UNIT/ML SUBCUT SCH ×4 (01:26→20:09)
[2018-11-23 04:28] LABS: Basophils # 0.1 10*3/uL (0.0-0.2); Basophils % 0.6 % (0.0-0.8); Eosinophils # 0.2 10*3/uL (0.0-0.87); Eosinophils % 1.1 % (0.00-10.9); Hematocrit 29.2 VOL% (35.7-47.0); Hemoglobin 9.1 GM/DL (12.0-16.0); Immature Granulocytes % 9.7 %; Immature Granulocytes Absolute 1.37 #; Lymphocytes # 2.9 10*3/uL (1.4-4.0); Lymphocytes % 20.4 % (21.3-54.2); Mean Corpuscular HGB Conc 31.2 GM/DL (32-36); Mean Corpuscular Hemoglobin 30 PG (27-34); Mean Corpuscular Volume 94.8 FL (87-102); Mean Platelet Volume 10.1 FL (9.6-12.0); Monocytes # 1.3 10*3/uL (0.11-0.8); Monocytes % 9.2 % (1.7-12.7); Neutrophils # 8.3 10*3/uL (1.4-7.4); Platelet Count 214 T/CUMM (130-400); Red Blood Count 3.08 MC/CUMM (3.8-5.5); Red Cell Distribution Width 15.7 % (9.3-17.3); White Blood Count 14.1 T/CUMM (4-12)
[2018-11-23 04:53] LABS: Alanine Aminotransferase 12 U/L (13-56); Albumin 2.7 G/DL (3.4-5.0); Alkaline Phosphatase 88 U/L (45-117); Aspartate Amino Transferase 5 U/L (0-37); Bilirubin,Total < 0.39 MG/DL (0.2-1.0); Blood Urea Nitrogen 16 MG/DL (7-18); Calcium 8.1 MG/DL (8.5-10.1); Glucose 107 MG/DL (74-106); Osmolality,Calculated 273.8 MOS/KG (273-304); Potassium 3.8 MMOL/L (3.5-5.1); Sodium 137 MMOL/L (136-145); Total Protein 6.1 G/DL (6.4-8.3)
[2018-11-23 05:07] LABS: Band Neutrophils 6 % (0-10); Eosinophils 1 % (0-10); Hypochromasia Slight; Lymphocytes 24 % (20-55); Microcytosis Slight; Segmented Neutrophils 61 % (50-85); Total Cells Counted 100
[2018-11-23 05:08] LABS: Platelet Estimate Normal
[2018-11-23] MEDS: cefTRIAXone 1,000 MG in SYRINGE 1 EACH IV SCH (05:53)
[2018-11-23] MEDS: DEXT 5% NACL 0.45% KCL 20 MEQ 20 MEQ/1,000 ML BAG IV SCH ×3 (05:53→21:00)
[2018-11-23] MEDS: ESCITALOPRAM 10 MG TABLET PO SCH (11:24)
[2018-11-23] MEDS: PANTOPRAZOLE 40 MG VIAL IV SCH (11:24)
[2018-11-23] MEDS: ATORVASTATIN 20 MG TABLET PO SCH (11:24)
[2018-11-23] MEDS: METOPROLOL TARTRATE 25 MG TABLET PO SCH ×2 (11:24→20:42)
[2018-11-23] MEDS: ASPIRIN 325 MG TABLET PO SCH (11:24)
[2018-11-23] MEDS: FILGRASTIM-SNDZ 300 MCG/0.5 ML SYRINGE SUBCUT SCH (11:27)
[2018-11-23] MEDS: INSULIN GLARGINE 100 UNIT/ML SUBCUT SCH ×2 (16:14→20:42)
[2018-11-23 22:26] LABS: Apearance,Urine Slightly Hazy (Clear); Bilirubin,Urine Negative (Negative); Blood, Urine Negative (Negative); Glucose,Urine (UA) >=500 mg/dL (Negative); Hyaline Casts,Urine 1 /LPF (0-3); Ketones,Urine Negative (Negative); Mucus,Urine Occasional /LPF (Occasional); Nitrite,Urine Negative (Negative); Protein,Urine Negative; RBC,Urine 3 /HPF (0-4); Squamous Epithelial Cell,Urine Occasional /HPF (0-10); Urine Color Yellow (Yellow); Urine Specific Gravity 1.029 (1.001-1.035); Urine Urobilinogen < 2.0 EU/DL (0.2-1.0); WBC,Urine 21 /HPF (0-6)
[2018-11-24] MEDS: INSULIN REGULAR 100 UNIT/ML SUBCUT SCH ×3 (01:49→12:45)
[2018-11-24 04:32] LABS: Basophils # 0.1 10*3/uL (0.0-0.2); Basophils % 0.7 % (0.0-0.8); Eosinophils # 2.8 10*3/uL (0.0-0.87); Eosinophils % 16.5 % (0.00-10.9); Hematocrit 27.9 VOL% (35.7-47.0); Hemoglobin 8.7 GM/DL (12.0-16.0); Immature Granulocytes % 4.9 %; Immature Granulocytes Absolute 0.83 #; Lymphocytes # 3.1 10*3/uL (1.4-4.0); Lymphocytes % 18.6 % (21.3-54.2); Mean Corpuscular HGB Conc 31.2 GM/DL (32-36); Mean Corpuscular Hemoglobin 30 PG (27-34); Mean Corpuscular Volume 96.2 FL (87-102); Mean Platelet Volume 10.4 FL (9.6-12.0); Monocytes # 2.2 10*3/uL (0.11-0.8); Monocytes % 12.9 % (1.7-12.7); NRBC # 0.06 10*3/uL; Neutrophils # 7.9 10*3/uL (1.4-7.4); Neutrophils % 46.4 % (38.7-73.9); Platelet Count 203 T/CUMM (130-400); White Blood Count 16.9 T/CUMM (4-12)
[2018-11-24 04:52] LABS: Albumin 2.6 G/DL (3.4-5.0); Bilirubin,Total 0.4 MG/DL (0.2-1.0); Calcium 7.8 MG/DL (8.5-10.1); Osmolality,Calculated 279.5 MOS/KG (273-304); Potassium 3.7 MMOL/L (3.5-5.1)
[2018-11-24 05:43] LABS: Band Neutrophils 1 % (0-10); Eosinophils 1 % (0-10); Hypochromasia 1+; Lymphocytes 23 % (20-55); Myelocytes 1 %; Segmented Neutrophils 60 % (50-85); Total Cells Counted 100
[2018-11-24 05:44] LABS: Anisocytosis 1+; Microcytosis 1+; Platelet Estimate Normal
[2018-11-24] MEDS: cefTRIAXone 1,000 MG in SYRINGE 1 EACH IV SCH (06:04)
[2018-11-24] MEDS: ESCITALOPRAM 10 MG TABLET PO SCH (08:24)
[2018-11-24] MEDS: ATORVASTATIN 20 MG TABLET PO SCH (08:24)
[2018-11-24] MEDS: FILGRASTIM-SNDZ 300 MCG/0.5 ML SYRINGE SUBCUT SCH (08:24)
[2018-11-24] MEDS: METOPROLOL TARTRATE 25 MG TABLET PO SCH (08:25)
[2018-11-24] MEDS: INSULIN GLARGINE 100 UNIT/ML SUBCUT SCH (08:25)
[2018-11-24] MEDS: ASPIRIN 325 MG TABLET PO SCH (08:25)
[2018-11-24] MEDS: PANTOPRAZOLE 40 MG VIAL IV SCH (08:32)
[2018-11-24] MEDS ORDERED: HEPARIN LOCK FLUSH 500 UNIT/5 ML SYRINGE IV ONE (11:18)
[2018-11-24 12:47] VITALS: BP 101/59
== END 2018-11-24 14:10 | disposition home or self-care (01) | DRG 641 ==
LOC: EDUNIT# → EDBD → N.ED 04:04 → N.EDINP 05:56 → N.4E 06:55
PROVIDERS: ADMIT Family Medicine; ATTEND Family Medicine

== ENCOUNTER 2018-12-17 23:32 | Inpatient (IN) ==
[2018-12-18] MEDS ORDERED: SODIUM CHLORIDE 0.9% 1,000 ML IV STA (00:14)
[2018-12-18] MEDS ORDERED: PROMETHAZINE INJ 12.5 MG in SODIUM CHLORIDE 0.9% 50 ML IV STA (00:15)
[2018-12-18] MEDS ORDERED: FAMOTIDINE 20 MG/2 ML VIAL IV STA (00:16)
[2018-12-18] MEDS ORDERED: PROMETHAZINE 25 MG/1 ML VIAL ONE (00:26)
[2018-12-18 01:06] LABS: Basophils % 0.7 % (0.0-0.8); Eosinophils % 0.2 % (0.00-10.9); Hematocrit 35.6 VOL% (35.7-47.0); Hemoglobin 11.2 GM/DL (12.0-16.0); Immature Granulocytes % 0.9 %; Immature Granulocytes Absolute 0.04 #; Lymphocytes # 1.3 10*3/uL (1.4-4.0); Lymphocytes % 27.5 % (21.3-54.2); Mean Corpuscular HGB Conc 31.5 GM/DL (32-36); Mean Corpuscular Hemoglobin 30 PG (27-34); Mean Corpuscular Volume 95.2 FL (87-102); Mean Platelet Volume 9.8 FL (9.6-12.0); Monocytes # 0.1 10*3/uL (0.11-0.8); Monocytes % 2.8 % (1.7-12.7); Neutrophils # 3.1 10*3/uL (1.4-7.4); Neutrophils % 67.9 % (38.7-73.9); Platelet Count 282 T/CUMM (130-400); Red Blood Count 3.74 MC/CUMM (3.8-5.5); Red Cell Distribution Width 14.3 % (9.3-17.3); White Blood Count 4.6 T/CUMM (4-12)
[2018-12-18 01:24] LABS: Alanine Aminotransferase 14 U/L (13-56); Alkaline Phosphatase 94 U/L (45-117); Amylase 25 U/L (25-115); Aspartate Amino Transferase 10 U/L (0-37); Blood Urea Nitrogen 49 MG/DL (7-18); Calcium 8.5 MG/DL (8.5-10.1); Glucose 212 MG/DL (74-106); Lipase < 50.0 U/L (73-393); Sodium 136 MMOL/L (136-145); Total Protein 6.9 G/DL (6.4-8.3)
[2018-12-18] MEDS ORDERED: VALSARTAN 160 MG TABLET PO PRN (03:46)
[2018-12-18] MEDS ORDERED: DOCUSATE SODIUM 100 MG CAPSULE PO PRN (03:47)
[2018-12-18] MEDS ORDERED: DEXTROSE 50% 25 GM/50 ML SYRINGE IV PRN (03:51)
[2018-12-18] MEDS ORDERED: GLUCAGON 1 MG VIAL IM PRN (03:51)
[2018-12-18] MEDS: SODIUM CHLOR 0.9% KCL 40 MEQ 40 MEQ/1,000 ML BAG IV SCH ×2 (04:39→17:30)
[2018-12-18 04:40] LABS: Basophils % 0.7 % (0.0-0.8); Eosinophils % 0.7 % (0.00-10.9); Hematocrit 30.4 VOL% (35.7-47.0); Hemoglobin 9.8 GM/DL (12.0-16.0); Immature Granulocytes % 0.9 %; Immature Granulocytes Absolute 0.04 #; Lymphocytes # 1.3 10*3/uL (1.4-4.0); Lymphocytes % 29.9 % (21.3-54.2); Mean Corpuscular HGB Conc 32.2 GM/DL (32-36); Mean Corpuscular Hemoglobin 30 PG (27-34); Mean Corpuscular Volume 93.5 FL (87-102); Mean Platelet Volume 10.3 FL (9.6-12.0); Monocytes # 0.1 10*3/uL (0.11-0.8); Monocytes % 2.5 % (1.7-12.7); Neutrophils # 2.8 10*3/uL (1.4-7.4); Neutrophils % 65.3 % (38.7-73.9); Platelet Count 246 T/CUMM (130-400); Red Blood Count 3.25 MC/CUMM (3.8-5.5); Red Cell Distribution Width 14.4 % (9.3-17.3); White Blood Count 4.3 T/CUMM (4-12)
[2018-12-18 05:10] LABS: Osmolality,Calculated 286.8 MOS/KG (273-304); Potassium 3.1 MMOL/L (3.5-5.1)
[2018-12-18] MEDS: INSULIN LISPRO 100 UNIT/ML SUBCUT SCH ×3 (05:36→17:27)
[2018-12-18] MEDS: SODIUM CHLORIDE 0.9% 1,000 ML IV SCH ×2 (07:37→14:43)
[2018-12-18] MEDS: ENOXAPARIN 40 MG/0.4 ML SYRINGE SUBCUT SCH (08:21)
[2018-12-18] MEDS ORDERED: guaiFENesin 200 MG/10 ML UDCUP PO PRN (08:22)
[2018-12-18] MEDS ORDERED: ONDANSETRON 4 MG/2 ML VIAL IV PRN (08:22)
[2018-12-18] MEDS ORDERED: TEMAZEPAM 7.5 MG CAPSULE PO PRN (08:22)
[2018-12-18] MEDS ORDERED: MYLANTA/LIDO VISC 2:1 300 ML BOTTLE SWISH/SPIT PRN (08:22)
[2018-12-18] MEDS ORDERED: MYLANTA/LIDO VISC 2:1 300 ML BOTTLE SWISH/SWAL PRN (08:22)
[2018-12-18] MEDS: ASPIRIN 325 MG TABLET PO SCH (08:22)
[2018-12-18] MEDS ORDERED: BENZTROPINE 2 MG/2 ML AMP IV PRN (08:22)
[2018-12-18] MEDS: ESCITALOPRAM 10 MG TABLET PO SCH (08:22)
[2018-12-18] MEDS ORDERED: ACETAMINOPHEN 325 MG TABLET PO PRN (08:22)
[2018-12-18] MEDS ORDERED: PROMETHAZINE INJ 25 MG in SODIUM CHLORIDE 0.9% 50 ML IV PRN (08:22)
[2018-12-18] MEDS ORDERED: traMADol 50 MG TABLET PO PRN (08:22)
[2018-12-18] MEDS ORDERED: LACTULOSE 20 GM/30 ML UDCUP PO PRN (08:22)
[2018-12-18] MEDS: ATORVASTATIN 10 MG TABLET PO SCH (08:22)
[2018-12-18] MEDS ORDERED: ALPRAZolam 0.25 MG TABLET PO PRN (08:22)
[2018-12-18] MEDS ORDERED: diphenhydrAMINE CAP 25 MG CAPSULE PO PRN (08:22)
[2018-12-18] MEDS ORDERED: chlorproMAZINE INJ 25 MG in SODIUM CHLORIDE 0.9% 100 ML IV PRN (08:22)
[2018-12-18] MEDS ORDERED: MAGNESIUM HYDROXIDE SUSP 30 ML UDCUP PO PRN (08:22)
[2018-12-18] MEDS ORDERED: LOPERAMIDE 2 MG CAPSULE PO PRN ×2 (08:22)
[2018-12-18] MEDS: ALUMINUM/MAGNES/SIMETH MAX STR 30 ML UDCUP PO PRN ×2 (08:32→17:29)
[2018-12-18] MEDS ORDERED: PANTOPRAZOLE 40 MG TABLET PO SCH (09:00)
[2018-12-18] MEDS: POTASSIUM CHLORIDE 20 MEQ TABLET PO SCH (17:30)
[2018-12-18 19:37] LABS: Apearance,Urine CLEAR (Clear); Bilirubin,Urine Negative (Negative); Blood, Urine Negative (Negative); Glucose,Urine (UA) 50 mg/dL (Negative); Hyaline Casts,Urine 16 /LPF (0-3); Ketones,Urine Negative (Negative); Mucus,Urine Many /LPF (Occasional); Nitrite,Urine Negative (Negative); Protein,Urine Negative; RBC,Urine 1 /HPF (0-4); Urine Color Yellow (Yellow); Urine Specific Gravity 1.026 (1.001-1.035); Urine Urobilinogen < 2.0 EU/DL (0.2-1.0); WBC,Urine 17 /HPF (0-6)
[2018-12-18] MEDS: INSULIN GLARGINE 100 UNIT/ML SUBCUT SCH (21:10)
[2018-12-19] MEDS: INSULIN LISPRO 100 UNIT/ML SUBCUT SCH ×4 (02:08→18:57)
[2018-12-19] MEDS: SODIUM CHLOR 0.9% KCL 40 MEQ 40 MEQ/1,000 ML BAG IV SCH ×4 (03:10→18:58)
[2018-12-19 05:15] LABS: Calcium 7.7 MG/DL (8.5-10.1); Osmolality,Calculated 288.4 MOS/KG (273-304); Potassium 4.3 MMOL/L (3.5-5.1)
[2018-12-19] MEDS: ASPIRIN 325 MG TABLET PO SCH (09:10)
[2018-12-19] MEDS: POTASSIUM CHLORIDE 20 MEQ TABLET PO SCH (09:11)
[2018-12-19] MEDS: ATORVASTATIN 10 MG TABLET PO SCH (09:11)
[2018-12-19] MEDS: ESCITALOPRAM 10 MG TABLET PO SCH (09:11)
[2018-12-19] MEDS: ENOXAPARIN 40 MG/0.4 ML SYRINGE SUBCUT SCH (09:12)
[2018-12-19] MEDS: PANTOPRAZOLE 40 MG TABLET PO SCH ×2 (09:21→21:03)
[2018-12-19] MEDS: INSULIN GLARGINE 100 UNIT/ML SUBCUT SCH (21:04)
[2018-12-20] MEDS: INSULIN LISPRO 100 UNIT/ML SUBCUT SCH ×4 (00:27→18:32)
[2018-12-20] MEDS: SODIUM CHLOR 0.9% KCL 40 MEQ 40 MEQ/1,000 ML BAG IV SCH ×3 (02:28→19:32)
[2018-12-20 05:06] LABS: Basophils % 0.6 % (0.0-0.8); Eosinophils % 0.6 % (0.00-10.9); Hematocrit 28.3 VOL% (35.7-47.0); Hemoglobin 8.7 GM/DL (12.0-16.0); Immature Granulocytes % 0.6 %; Immature Granulocytes Absolute 0.02 #; Lymphocytes # 2.4 10*3/uL (1.4-4.0); Mean Corpuscular HGB Conc 30.7 GM/DL (32-36); Mean Corpuscular Hemoglobin 30 PG (27-34); Mean Corpuscular Volume 97.9 FL (87-102); Mean Platelet Volume 10.7 FL (9.6-12.0); Monocytes # 0.3 10*3/uL (0.11-0.8); Monocytes % 7.7 % (1.7-12.7); Neutrophils # 0.8 10*3/uL (1.4-7.4); Neutrophils % 23.5 % (38.7-73.9); Platelet Count 205 T/CUMM (130-400); Red Blood Count 2.89 MC/CUMM (3.8-5.5); Red Cell Distribution Width 14.4 % (9.3-17.3); White Blood Count 3.5 T/CUMM (4-12)
[2018-12-20 05:44] LABS: Albumin 2.6 G/DL (3.4-5.0); Bilirubin,Total 0.7 MG/DL (0.2-1.0); Calcium 7.8 MG/DL (8.5-10.1); Osmolality,Calculated 271.7 MOS/KG (273-304); Potassium 4.3 MMOL/L (3.5-5.1); Total Protein 5.9 G/DL (6.4-8.3)
[2018-12-20 06:29] LABS: Eosinophils 2 % (0-10); Lymphocytes 77 % (20-55); Metamyelocytes 2 %; Platelet Estimate Normal; Segmented Neutrophils 16 % (50-85); Total Cells Counted 100
[2018-12-20 06:30] LABS: Pappenheimer Bodies Few
[2018-12-20] MEDS: ENOXAPARIN 40 MG/0.4 ML SYRINGE SUBCUT SCH (09:51)
[2018-12-20] MEDS: PANTOPRAZOLE 40 MG TABLET PO SCH ×2 (09:51→21:15)
[2018-12-20] MEDS: FILGRASTIM-SNDZ 300 MCG/0.5 ML SYRINGE SUBCUT SCH (09:51)
[2018-12-20] MEDS: ATORVASTATIN 10 MG TABLET PO SCH (09:51)
[2018-12-20] MEDS: ESCITALOPRAM 10 MG TABLET PO SCH (09:51)
[2018-12-20] MEDS: POTASSIUM CHLORIDE 20 MEQ TABLET PO SCH (09:51)
[2018-12-20] MEDS: ASPIRIN 325 MG TABLET PO SCH (09:51)
[2018-12-20] MEDS: INSULIN GLARGINE 100 UNIT/ML SUBCUT SCH (20:50)
[2018-12-21] MEDS: INSULIN LISPRO 100 UNIT/ML SUBCUT SCH ×4 (01:51→17:57)
[2018-12-21] MEDS: SODIUM CHLOR 0.9% KCL 40 MEQ 40 MEQ/1,000 ML BAG IV SCH ×3 (03:35→21:15)
[2018-12-21 04:44] LABS: Basophils % 0.4 % (0.0-0.8); Eosinophils % 0.3 % (0.00-10.9); Hematocrit 27.5 VOL% (35.7-47.0); Hemoglobin 8.6 GM/DL (12.0-16.0); Immature Granulocytes % 0.8 %; Immature Granulocytes Absolute 0.06 #; Lymphocytes # 2.6 10*3/uL (1.4-4.0); Lymphocytes % 36.5 % (21.3-54.2); Mean Corpuscular HGB Conc 31.3 GM/DL (32-36); Mean Corpuscular Hemoglobin 31 PG (27-34); Mean Corpuscular Volume 97.5 FL (87-102); Mean Platelet Volume 10.6 FL (9.6-12.0); Monocytes # 0.7 10*3/uL (0.11-0.8); Monocytes % 9.4 % (1.7-12.7); NRBC # 0.03 10*3/uL; Neutrophils # 3.8 10*3/uL (1.4-7.4); Neutrophils % 52.6 % (38.7-73.9); Platelet Count 206 T/CUMM (130-400); Red Blood Count 2.82 MC/CUMM (3.8-5.5); Red Cell Distribution Width 14.6 % (9.3-17.3); White Blood Count 7.2 T/CUMM (4-12)
[2018-12-21 05:06] LABS: Albumin 2.5 G/DL (3.4-5.0); Bilirubin,Total 0.5 MG/DL (0.2-1.0); Calcium 7.9 MG/DL (8.5-10.1); Osmolality,Calculated 274.7 MOS/KG (273-304); Potassium 4.5 MMOL/L (3.5-5.1); Total Protein 5.7 G/DL (6.4-8.3)
[2018-12-21] MEDS: FILGRASTIM-SNDZ 300 MCG/0.5 ML SYRINGE SUBCUT SCH (09:36)
[2018-12-21] MEDS: ENOXAPARIN 40 MG/0.4 ML SYRINGE SUBCUT SCH (09:36)
[2018-12-21] MEDS: PANTOPRAZOLE 40 MG TABLET PO SCH ×2 (09:37→21:14)
[2018-12-21] MEDS: ATORVASTATIN 10 MG TABLET PO SCH (09:37)
[2018-12-21] MEDS: ESCITALOPRAM 10 MG TABLET PO SCH (09:37)
[2018-12-21] MEDS: ASPIRIN 325 MG TABLET PO SCH (09:37)
[2018-12-21] MEDS: INSULIN GLARGINE 100 UNIT/ML SUBCUT SCH (21:15)
[2018-12-22] MEDS: INSULIN LISPRO 100 UNIT/ML SUBCUT SCH ×3 (00:57→11:36)
[2018-12-22] MEDS: SODIUM CHLOR 0.9% KCL 40 MEQ 40 MEQ/1,000 ML BAG IV SCH (04:38)
[2018-12-22 05:41] LABS: Basophils # 0.1 10*3/uL (0.0-0.2); Basophils % 0.5 % (0.0-0.8); Eosinophils % 0.1 % (0.00-10.9); Hematocrit 26.8 VOL% (35.7-47.0); Hemoglobin 8.2 GM/DL (12.0-16.0); Immature Granulocytes % 24.2 %; Immature Granulocytes Absolute 2.67 #; Lymphocytes # 2.5 10*3/uL (1.4-4.0); Lymphocytes % 22.6 % (21.3-54.2); Mean Corpuscular HGB Conc 30.6 GM/DL (32-36); Mean Corpuscular Hemoglobin 30 PG (27-34); Mean Corpuscular Volume 98.9 FL (87-102); Monocytes # 1.3 10*3/uL (0.11-0.8); Monocytes % 11.3 % (1.7-12.7); NRBC # 0.31 10*3/uL; Neutrophils # 4.6 10*3/uL (1.4-7.4); Neutrophils % 41.3 % (38.7-73.9); Platelet Count 195 T/CUMM (130-400); Red Blood Count 2.71 MC/CUMM (3.8-5.5)
[2018-12-22 06:10] LABS: Band Neutrophils 10 % (0-10); Lymphocytes 26 % (20-55); Myelocytes 1 %; Nucleated Red Blood Cells 2 (0-5); Segmented Neutrophils 54 % (50-85); Total Cells Counted 100
[2018-12-22 06:11] LABS: Hypochromasia 1+
[2018-12-22 06:12] LABS: Microcytosis 1+; Ovalocytes Slight; Platelet Estimate Adequate
[2018-12-22 06:18] LABS: Alanine Aminotransferase 17 U/L (13-56); Albumin 2.3 G/DL (3.4-5.0); Alkaline Phosphatase 87 U/L (45-117); Aspartate Amino Transferase 11 U/L (0-37); Bilirubin,Total < 0.39 MG/DL (0.2-1.0); Blood Urea Nitrogen 13 MG/DL (7-18); Calcium 7.8 MG/DL (8.5-10.1); Glucose 187 MG/DL (74-106); Osmolality,Calculated 277.8 MOS/KG (273-304); Potassium 5.4 MMOL/L (3.5-5.1); Sodium 137 MMOL/L (136-145); Total Protein 5.4 G/DL (6.4-8.3)
[2018-12-22] MEDS: PANTOPRAZOLE 40 MG TABLET PO SCH (08:48)
[2018-12-22] MEDS: ATORVASTATIN 10 MG TABLET PO SCH (08:48)
[2018-12-22] MEDS: ASPIRIN 325 MG TABLET PO SCH (08:48)
[2018-12-22] MEDS: ESCITALOPRAM 10 MG TABLET PO SCH (08:48)
[2018-12-22] MEDS: ENOXAPARIN 40 MG/0.4 ML SYRINGE SUBCUT SCH (08:48)
[2018-12-22] MEDS: FILGRASTIM-SNDZ 300 MCG/0.5 ML SYRINGE SUBCUT SCH (08:49)
[2018-12-22 12:11] VITALS: BP 158/74
[2018-12-22] MEDS ORDERED: HEPARIN LOCK FLUSH 500 UNIT/5 ML SYRINGE IV ONE (13:00)
== END 2018-12-22 13:34 | disposition home or self-care (01) | DRG 392 ==
LOC: EDUNIT# → EDBD → N.EDINP 23:32 → N.ED 23:32 → SUATTDRO 12-18 02:50 → N.4E 12-18 03:58
PROVIDERS: ADMIT Internal Medicine Nephrology; ATTEND Hospitalist

== ENCOUNTER 2019-01-24 14:58 | Inpatient (IN) ==
[2019-01-24] MEDS ORDERED: SODIUM CHLORIDE 0.9% 1,000 ML IV STA ×2 (15:27→16:43)
[2019-01-24] MEDS ORDERED: ONDANSETRON 4 MG/2 ML VIAL IV STA (15:27)
[2019-01-24 15:56] LABS: Basophils % 0.3 % (0.0-0.8); Hematocrit 37.6 VOL% (35.7-47.0); Hemoglobin 11.9 GM/DL (12.0-16.0); Immature Granulocytes % 0.5 %; Immature Granulocytes Absolute 0.05 #; Lymphocytes # 1.2 10*3/uL (1.4-4.0); Lymphocytes % 11.6 % (21.3-54.2); Mean Corpuscular HGB Conc 31.6 GM/DL (32-36); Mean Corpuscular Hemoglobin 29 PG (27-34); Mean Corpuscular Volume 91.9 FL (87-102); Monocytes # 0.7 10*3/uL (0.11-0.8); Monocytes % 6.6 % (1.7-12.7); Neutrophils # 8.4 10*3/uL (1.4-7.4); Platelet Count 387 T/CUMM (130-400); Red Blood Count 4.09 MC/CUMM (3.8-5.5); Red Cell Distribution Width 14.6 % (9.3-17.3); White Blood Count 10.4 T/CUMM (4-12)
[2019-01-24 16:13] LABS: Calcium 9.1 MG/DL (8.5-10.1); Osmolality,Calculated 286.4 MOS/KG (273-304); Potassium 3.3 MMOL/L (3.5-5.1)
[2019-01-24] MEDS ORDERED: PROMETHAZINE 25 MG/1 ML VIAL IM STA (19:06)
[2019-01-24] MEDS ORDERED: traMADol 50 MG TABLET PO PRN (20:09)
[2019-01-24] MEDS ORDERED: SODIUM CHLORIDE 0.9% 1,000 ML IV SCH (20:09)
[2019-01-24] MEDS ORDERED: ONDANSETRON 4 MG TABLET PO PRN (20:09)
[2019-01-24] MEDS ORDERED: PROMETHAZINE 25 MG TABLET PO PRN (20:09)
[2019-01-24] MEDS ORDERED: GLUCAGON 1 MG VIAL IM PRN (20:09)
[2019-01-24] MEDS ORDERED: ALPRAZolam 0.25 MG TABLET PO PRN (20:09)
[2019-01-24] MEDS ORDERED: ACETAMINOPHEN 325 MG TABLET PO PRN (20:09)
[2019-01-24] MEDS ORDERED: DEXTROSE 50% 25 GM/50 ML SYRINGE IV PRN (20:09)
[2019-01-24] MEDS: INSULIN GLARGINE 100 UNIT/ML SUBCUT SCH (21:54)
[2019-01-24] MEDS: SODIUM CHLOR 0.9% KCL 20 MEQ 20 MEQ/1,000 ML BAG IV SCH (21:54)
[2019-01-24] MEDS: ONDANSETRON 4 MG/2 ML VIAL IV PRN (21:55)
[2019-01-24] MEDS: DOCUSATE SODIUM 100 MG CAPSULE PO SCH (21:55)
[2019-01-25] MEDS: PROMETHAZINE 25 MG/1 ML VIAL IM PRN ×3 (01:49→20:01)
[2019-01-25] MEDS: INSULIN REGULAR 100 UNIT/ML SUBCUT SCH ×4 (02:40→18:20)
[2019-01-25 05:42] LABS: Basophils % 0.2 % (0.0-0.8); Hematocrit 34.9 VOL% (35.7-47.0); Hemoglobin 10.8 GM/DL (12.0-16.0); Immature Granulocytes % 0.4 %; Immature Granulocytes Absolute 0.04 #; Lymphocytes # 1.3 10*3/uL (1.4-4.0); Lymphocytes % 13.2 % (21.3-54.2); Mean Corpuscular HGB Conc 30.9 GM/DL (32-36); Mean Corpuscular Hemoglobin 29 PG (27-34); Mean Corpuscular Volume 93.3 FL (87-102); Monocytes % 10.1 % (1.7-12.7); Neutrophils # 7.3 10*3/uL (1.4-7.4); Neutrophils % 76.1 % (38.7-73.9); Platelet Count 360 T/CUMM (130-400); Red Blood Count 3.74 MC/CUMM (3.8-5.5); Red Cell Distribution Width 14.6 % (9.3-17.3); White Blood Count 9.6 T/CUMM (4-12)
[2019-01-25 06:04] LABS: Albumin 2.7 G/DL (3.4-5.0); Bilirubin,Total 0.8 MG/DL (0.2-1.0); Calcium 8.5 MG/DL (8.5-10.1); Osmolality,Calculated 281.7 MOS/KG (273-304); Potassium 3.3 MMOL/L (3.5-5.1); Total Protein 7.6 G/DL (6.4-8.3)
[2019-01-25] MEDS: ONDANSETRON 4 MG/2 ML VIAL IV PRN ×2 (06:32→15:00)
[2019-01-25] MEDS: ESCITALOPRAM 10 MG TABLET PO SCH (09:15)
[2019-01-25] MEDS: ASPIRIN 325 MG TABLET PO SCH (09:15)
[2019-01-25] MEDS: ATORVASTATIN 10 MG TABLET PO SCH (09:15)
[2019-01-25] MEDS: PANTOPRAZOLE 40 MG TABLET PO SCH (09:15)
[2019-01-25] MEDS: DOCUSATE SODIUM 100 MG CAPSULE PO SCH ×2 (09:15→21:05)
[2019-01-25] MEDS: INSULIN GLARGINE 100 UNIT/ML SUBCUT SCH ×2 (09:16→21:05)
[2019-01-25] MEDS: SODIUM CHLOR 0.9% KCL 20 MEQ 20 MEQ/1,000 ML BAG IV SCH ×2 (09:17→20:01)
[2019-01-25] MEDS: NON-FORMULARY MEDICATION (Liraglutide [Victoza 2-Pak] 1.2 MG) PO SCH (09:21)
[2019-01-26] MEDS: ONDANSETRON 4 MG/2 ML VIAL IV PRN ×2 (00:05→08:44)
[2019-01-26] MEDS: INSULIN REGULAR 100 UNIT/ML SUBCUT SCH ×4 (00:43→17:42)
[2019-01-26] MEDS: PROMETHAZINE 25 MG/1 ML VIAL IM PRN (03:35)
[2019-01-26] MEDS: VALSARTAN 160 MG TABLET PO PRN (03:35)
[2019-01-26] MEDS: SODIUM CHLOR 0.9% KCL 20 MEQ 20 MEQ/1,000 ML BAG IV SCH ×2 (04:04→19:19)
[2019-01-26 05:15] LABS: Basophils % 0.3 % (0.0-0.8); Immature Granulocytes % 0.5 %; Immature Granulocytes Absolute 0.04 #; Lymphocytes # 1.2 10*3/uL (1.4-4.0); Mean Corpuscular HGB Conc 30.6 GM/DL (32-36); Mean Corpuscular Hemoglobin 29 PG (27-34); Mean Corpuscular Volume 94.7 FL (87-102); Mean Platelet Volume 9.8 FL (9.6-12.0); Monocytes # 0.8 10*3/uL (0.11-0.8); Neutrophils # 5.7 10*3/uL (1.4-7.4); Neutrophils % 74.2 % (38.7-73.9); Platelet Count 345 T/CUMM (130-400); Red Cell Distribution Width 14.6 % (9.3-17.3); White Blood Count 7.7 T/CUMM (4-12)
[2019-01-26 05:28] LABS: Albumin 2.7 G/DL (3.4-5.0); Bilirubin,Total 0.8 MG/DL (0.2-1.0); Calcium 8.5 MG/DL (8.5-10.1); Osmolality,Calculated 277.7 MOS/KG (273-304); Potassium 3.3 MMOL/L (3.5-5.1); Total Protein 7.4 G/DL (6.4-8.3)
[2019-01-26] MEDS: ASPIRIN 325 MG TABLET PO SCH (08:33)
[2019-01-26] MEDS: ATORVASTATIN 10 MG TABLET PO SCH (08:33)
[2019-01-26] MEDS: PANTOPRAZOLE 40 MG TABLET PO SCH (08:33)
[2019-01-26] MEDS: DOCUSATE SODIUM 100 MG CAPSULE PO SCH ×2 (08:33→22:28)
[2019-01-26] MEDS: ESCITALOPRAM 10 MG TABLET PO SCH (08:33)
[2019-01-26] MEDS: INSULIN GLARGINE 100 UNIT/ML SUBCUT SCH ×2 (08:34→22:27)
[2019-01-26] MEDS: NON-FORMULARY MEDICATION (Liraglutide [Victoza 2-Pak] 1.2 MG) PO SCH (08:34)
[2019-01-26] MEDS ORDERED: TRASTUZUMAB IV ONE (11:00)
[2019-01-26] MEDS ORDERED: SODIUM CHLORIDE 0.9% IV ONE ×2 (11:00)
[2019-01-26] MEDS ORDERED: CARBOPLATIN IV ONE (11:00)
[2019-01-26] MEDS ORDERED: DEXAMETHASONE INJ 20 MG in SODIUM CHLORIDE 0.9% 50 ML IV ONE (11:00)
[2019-01-26] MEDS: GRANISETRON 1 MG/1 ML VIAL IV SCH (12:10)
[2019-01-27] MEDS: INSULIN REGULAR 100 UNIT/ML SUBCUT SCH ×4 (00:56→19:56)
[2019-01-27] MEDS: SODIUM CHLOR 0.9% KCL 20 MEQ 20 MEQ/1,000 ML BAG IV SCH ×2 (04:45→15:17)
[2019-01-27] MEDS: ONDANSETRON 4 MG/2 ML VIAL IV PRN ×2 (12:33→21:46)
[2019-01-27] MEDS: ASPIRIN 325 MG TABLET PO SCH ×2 (15:14→16:28)
[2019-01-27] MEDS: ATORVASTATIN 10 MG TABLET PO SCH ×2 (15:14→16:27)
[2019-01-27] MEDS: PANTOPRAZOLE 40 MG TABLET PO SCH ×2 (15:15→16:27)
[2019-01-27] MEDS: DOCUSATE SODIUM 100 MG CAPSULE PO SCH ×3 (15:15→21:46)
[2019-01-27] MEDS: ESCITALOPRAM 10 MG TABLET PO SCH ×2 (15:15→16:28)
[2019-01-27] MEDS: VALSARTAN 160 MG TABLET PO PRN (15:15)
[2019-01-27] MEDS: NON-FORMULARY MEDICATION (Liraglutide [Victoza 2-Pak] 1.2 MG) PO SCH (15:36)
[2019-01-27] MEDS: INSULIN GLARGINE 100 UNIT/ML SUBCUT SCH ×2 (15:36→21:45)
[2019-01-27] MEDS: GRANISETRON 1 MG/1 ML VIAL IV SCH ×2 (16:13→16:26)
[2019-01-27] MEDS: PROMETHAZINE INJ 25 MG in SODIUM CHLORIDE 0.9% 50 ML IV PRN (18:32)
[2019-01-28] MEDS: INSULIN REGULAR 100 UNIT/ML SUBCUT SCH ×3 (00:28→14:59)
[2019-01-28] MEDS: SODIUM CHLOR 0.9% KCL 20 MEQ 20 MEQ/1,000 ML BAG IV SCH ×3 (01:53→22:12)
[2019-01-28] MEDS: ONDANSETRON 4 MG/2 ML VIAL IV PRN (02:51)
[2019-01-28 04:55] LABS: Basophils % 0.2 % (0.0-0.8); Eosinophils % 0.8 % (0.00-10.9); Hematocrit 35.2 VOL% (35.7-47.0); Hemoglobin 11.2 GM/DL (12.0-16.0); Immature Granulocytes % 0.4 %; Immature Granulocytes Absolute 0.02 #; Lymphocytes # 1.1 10*3/uL (1.4-4.0); Mean Corpuscular HGB Conc 31.8 GM/DL (32-36); Mean Corpuscular Hemoglobin 29 PG (27-34); Monocytes # 0.3 10*3/uL (0.11-0.8); Monocytes % 6.5 % (1.7-12.7); Neutrophils # 3.5 10*3/uL (1.4-7.4); Neutrophils % 70.1 % (38.7-73.9); Platelet Count 329 T/CUMM (130-400); Red Blood Count 3.87 MC/CUMM (3.8-5.5); Red Cell Distribution Width 14.4 % (9.3-17.3)
[2019-01-28 05:16] LABS: Calcium 7.9 MG/DL (8.5-10.1); Potassium 3.9 MMOL/L (3.5-5.1)
[2019-01-28] MEDS: ATORVASTATIN 10 MG TABLET PO SCH (09:43)
[2019-01-28] MEDS: ESCITALOPRAM 10 MG TABLET PO SCH (09:43)
[2019-01-28] MEDS: INSULIN GLARGINE 100 UNIT/ML SUBCUT SCH ×2 (09:43→22:15)
[2019-01-28] MEDS: DOCUSATE SODIUM 100 MG CAPSULE PO SCH ×2 (09:43→22:17)
[2019-01-28] MEDS: PANTOPRAZOLE 40 MG TABLET PO SCH (09:43)
[2019-01-28] MEDS: ASPIRIN 325 MG TABLET PO SCH (09:43)
[2019-01-28] MEDS: NON-FORMULARY MEDICATION (Liraglutide [Victoza 2-Pak] 1.2 MG) PO SCH (09:44)
[2019-01-28] MEDS: SUCRALFATE 1 GM/10 ML UDCUP PO SCH (11:39)
[2019-01-28] MEDS: PROMETHAZINE INJ 25 MG in SODIUM CHLORIDE 0.9% 50 ML IV PRN (12:17)
[2019-01-28] MEDS: predniSONE 10 MG TABLET PO SCH (13:50)
[2019-01-29] MEDS: INSULIN REGULAR 100 UNIT/ML SUBCUT SCH ×3 (02:08→12:00)
[2019-01-29] MEDS ORDERED: chlorproMAZINE 25 MG TABLET PO PRN (03:06)
[2019-01-29] MEDS: SODIUM CHLOR 0.9% KCL 20 MEQ 20 MEQ/1,000 ML BAG IV SCH ×2 (08:24→11:30)
[2019-01-29] MEDS: SUCRALFATE 1 GM/10 ML UDCUP PO SCH ×2 (10:00→10:01)
[2019-01-29] MEDS: ASPIRIN 325 MG TABLET PO SCH (10:01)
[2019-01-29] MEDS: ATORVASTATIN 10 MG TABLET PO SCH (10:02)
[2019-01-29] MEDS: PANTOPRAZOLE 40 MG TABLET PO SCH (10:02)
[2019-01-29] MEDS: predniSONE 10 MG TABLET PO SCH (10:02)
[2019-01-29] MEDS: DOCUSATE SODIUM 100 MG CAPSULE PO SCH (10:02)
[2019-01-29] MEDS: ESCITALOPRAM 10 MG TABLET PO SCH (10:03)
[2019-01-29] MEDS: INSULIN GLARGINE 100 UNIT/ML SUBCUT SCH (10:15)
[2019-01-29] MEDS: NON-FORMULARY MEDICATION (Liraglutide [Victoza 2-Pak] 1.2 MG) PO SCH (10:52)
[2019-01-29 13:09] VITALS: BP 115/58
== END 2019-01-29 15:41 | disposition home or self-care (01) | DRG 392 ==
LOC: EDBD → EDUNIT# → N.ED 14:58 → N.EDINP 14:58 → N.4E 19:34
PROVIDERS: ADMIT Family Medicine; ATTEND Family Medicine

== ENCOUNTER 2020-01-16 08:06 | Observation (INO) ==
[2020-01-16] MEDS ORDERED: SODIUM CHLORIDE 0.9% 1,000 ML IV STA (08:13)
[2020-01-16] MEDS ORDERED: ONDANSETRON 4 MG/2 ML VIAL IV STA (08:15)
[2020-01-16 08:41] LABS: Basophils % 0.1 % (0.0-0.8); Eosinophils % 0.1 % (0.00-10.9); Hematocrit 38.2 VOL% (35.7-47.0); Hemoglobin 12.2 GM/DL (12.0-16.0); Immature Granulocytes % 0.8 %; Immature Granulocytes Absolute 0.08 #; Lymphocytes # 1.3 10*3/uL (1.4-4.0); Lymphocytes % 13.3 % (21.3-54.2); Mean Corpuscular HGB Conc 31.9 GM/DL (32-36); Mean Corpuscular Volume 88.2 FL (87-102); Mean Platelet Volume 10.1 FL (9.6-12.0); Monocytes % 9.5 % (1.7-12.7); Neutrophils % 76.2 % (38.7-73.9); Platelet Count 387 T/CUMM (130-400); Red Blood Count 4.33 MC/CUMM (3.8-5.5); Red Cell Distribution Width 16.3 % (9.3-17.3); White Blood Count 9.7 T/CUMM (4-12)
[2020-01-16 08:53] LABS: Apearance,Urine CLEAR (Clear); Bilirubin,Urine Negative (Negative); Blood, Urine Negative (Negative); Glucose,Urine (UA) >=500 mg/dL (Negative); Ketones,Urine 20 mg/dL (Negative); Mucus,Urine Occasional /LPF (Occasional); Nitrite,Urine Negative (Negative); Protein,Urine Negative; RBC,Urine 1 /HPF (0-4); Urine Color Yellow (Yellow); Urine Specific Gravity 1.029 (1.001-1.035); Urine Urobilinogen < 2.0 EU/DL (0.2-1.0); WBC,Urine 6 /HPF (0-6)
[2020-01-16 08:56] LABS: PT Patient Result 10.6 SECS (9.8-11.9)
[2020-01-16 09:02] LABS: Albumin 3.3 G/DL (3.4-5.0); Bilirubin,Total 0.6 MG/DL (0.2-1.0); Calcium 9.3 MG/DL (8.5-10.1); Osmolality,Calculated 299.4 MOS/KG (273-304)
[2020-01-16] MEDS ORDERED: INSULIN LISPRO 100 UNIT/ML SUBCUT STA (09:11)
[2020-01-16] MEDS ORDERED: PROMETHAZINE 25 MG/1 ML VIAL IM STA (10:24)
[2020-01-16] MEDS ORDERED: LORazepam 2 MG/1 ML VIAL IV STA (10:24)
[2020-01-16] MEDS ORDERED: PROMETHAZINE 25 MG/1 ML VIAL ONE (10:24)
[2020-01-16] MEDS ORDERED: LORazepam 2 MG/1 ML VIAL ONE (10:25)
[2020-01-16] MEDS ORDERED: GLUCAGON 1 MG VIAL IM PRN (11:19)
[2020-01-16] MEDS ORDERED: DEXTROSE 10% 250 ML BAG IV PRN (11:19)
[2020-01-16] MEDS ORDERED: PROMETHAZINE 25 MG/1 ML VIAL IM PRN (11:19)
[2020-01-16] MEDS ORDERED: ACETAMINOPHEN 325 MG TABLET PO PRN (11:19)
[2020-01-16] MEDS ORDERED: LORazepam 2 MG/1 ML VIAL IV PRN (11:19)
[2020-01-16] MEDS ORDERED: ONDANSETRON 4 MG/2 ML VIAL IV PRN (11:19)
[2020-01-16] MEDS: INSULIN LISPRO 100 UNIT/ML SUBCUT SCH ×3 (11:23→20:37)
[2020-01-16] MEDS: SODIUM CHLORIDE 0.9% 1,000 ML IV SCH ×2 (11:51→18:29)
[2020-01-16] MEDS: INSULIN GLARGINE 100 UNIT/ML SUBCUT SCH (20:37)
[2020-01-16] MEDS: DOCUSATE SODIUM 100 MG CAPSULE PO SCH (20:38)
[2020-01-17] MEDS: SODIUM CHLORIDE 0.9% 1,000 ML IV SCH ×4 (01:16→20:16)
[2020-01-17 05:57] LABS: Albumin 2.5 G/DL (3.4-5.0); Bilirubin,Total 0.5 MG/DL (0.2-1.0); Calcium 7.9 MG/DL (8.5-10.1); Total Protein 5.7 G/DL (6.4-8.3)
[2020-01-17] MEDS: INSULIN LISPRO 100 UNIT/ML SUBCUT SCH ×4 (09:21→20:14)
[2020-01-17] MEDS: Liraglutide [Victoza 2-Pak] 1.2 MG PO SCH (09:21)
[2020-01-17] MEDS: INSULIN GLARGINE 100 UNIT/ML SUBCUT SCH ×2 (09:21→20:14)
[2020-01-17] MEDS: PANTOPRAZOLE 40 MG TABLET PO SCH (09:24)
[2020-01-17] MEDS: POTASSIUM CHLORIDE 20 MEQ/15 ML UDCUP PO PRN ×3 (09:25→15:50)
[2020-01-17] MEDS: DOCUSATE SODIUM 100 MG CAPSULE PO SCH ×2 (09:27→20:15)
[2020-01-18] MEDS: INSULIN LISPRO 100 UNIT/ML SUBCUT SCH ×4 (08:22→20:54)
[2020-01-18] MEDS: DOCUSATE SODIUM 100 MG CAPSULE PO SCH ×2 (09:30→20:56)
[2020-01-18] MEDS: INSULIN GLARGINE 100 UNIT/ML SUBCUT SCH ×2 (09:30→20:54)
[2020-01-18] MEDS: PANTOPRAZOLE 40 MG TABLET PO SCH (09:30)
[2020-01-18] MEDS: SODIUM CHLORIDE 0.9% 1,000 ML IV SCH ×3 (09:31→18:48)
[2020-01-18] MEDS: Liraglutide [Victoza 2-Pak] 1.2 MG PO SCH (11:21)
[2020-01-19 05:44] LABS: Basophils % 0.2 % (0.0-0.8); Eosinophils # 0.1 10*3/uL (0.0-0.87); Eosinophils % 1.8 % (0.00-10.9); Hematocrit 28.9 VOL% (35.7-47.0); Hemoglobin 8.8 GM/DL (12.0-16.0); Immature Granulocytes % 0.9 %; Immature Granulocytes Absolute 0.05 #; Lymphocytes # 1.2 10*3/uL (1.4-4.0); Lymphocytes % 21.9 % (21.3-54.2); Mean Corpuscular HGB Conc 30.4 GM/DL (32-36); Mean Corpuscular Volume 92.3 FL (87-102); Mean Platelet Volume 10.3 FL (9.6-12.0); Monocytes % 10.5 % (1.7-12.7); Neutrophils % 64.7 % (38.7-73.9); Platelet Count 251 T/CUMM (130-400); Red Blood Count 3.13 MC/CUMM (3.8-5.5); White Blood Count 5.4 T/CUMM (4-12)
[2020-01-19 06:10] LABS: Calcium 8.1 MG/DL (8.5-10.1); Osmolality,Calculated 280.1 MOS/KG (273-304)
[2020-01-19] MEDS: SODIUM CHLORIDE 0.9% 1,000 ML IV SCH ×2 (08:24→16:33)
[2020-01-19] MEDS: PANTOPRAZOLE 40 MG TABLET PO SCH (08:24)
[2020-01-19] MEDS: DOCUSATE SODIUM 100 MG CAPSULE PO SCH ×2 (08:24→21:17)
[2020-01-19] MEDS: INSULIN LISPRO 100 UNIT/ML SUBCUT SCH ×4 (10:11→21:16)
[2020-01-19] MEDS: Liraglutide [Victoza 2-Pak] 1.2 MG PO SCH (10:11)
[2020-01-19] MEDS: INSULIN GLARGINE 100 UNIT/ML SUBCUT SCH ×2 (10:12→21:16)
[2020-01-19] MEDS: POTASSIUM CHLORIDE 20 MEQ/15 ML UDCUP PO PRN (16:34)
[2020-01-19] MEDS ORDERED: POTASSIUM CHLORIDE RIDER 20 MEQ in PREMIX 1 EACH IV PRN (16:53)
[2020-01-19] MEDS: POTASSIUM CHLORIDE RIDER 10 MEQ in PREMIX 1 EACH IV PRN (17:30)
[2020-01-19] MEDS: POTASSIUM CHLORIDE RIDER 20 MEQ in PREMIX 1 EACH IV PRN ×2 (18:35→21:23)
[2020-01-20 05:48] LABS: Calcium 9.1 MG/DL (8.5-10.1); Osmolality,Calculated 272.8 MOS/KG (273-304)
[2020-01-20] MEDS: PANTOPRAZOLE 40 MG TABLET PO SCH (10:42)
[2020-01-20] MEDS: DOCUSATE SODIUM 100 MG CAPSULE PO SCH ×2 (10:42→20:16)
[2020-01-20] MEDS: INSULIN LISPRO 100 UNIT/ML SUBCUT SCH ×4 (10:42→20:16)
[2020-01-20] MEDS: INSULIN GLARGINE 100 UNIT/ML SUBCUT SCH ×2 (10:43→20:17)
[2020-01-20] MEDS: Liraglutide [Victoza 2-Pak] 1.2 MG PO SCH (10:43)
[2020-01-20] MEDS: SODIUM CHLORIDE 0.9% 1,000 ML IV SCH ×2 (10:44→16:50)
[2020-01-21] MEDS: SODIUM CHLORIDE 0.9% 1,000 ML IV SCH (02:36)
[2020-01-21 06:59] LABS: Calcium 8.6 MG/DL (8.5-10.1); Osmolality,Calculated 275.5 MOS/KG (273-304)
[2020-01-21] MEDS: Liraglutide [Victoza 2-Pak] 1.2 MG PO SCH (08:08)
[2020-01-21] MEDS: DOCUSATE SODIUM 100 MG CAPSULE PO SCH (08:32)
[2020-01-21] MEDS: INSULIN LISPRO 100 UNIT/ML SUBCUT SCH (08:32)
[2020-01-21] MEDS: PANTOPRAZOLE 40 MG TABLET PO SCH (08:32)
[2020-01-21] MEDS: POTASSIUM CHLORIDE RIDER 10 MEQ in PREMIX 1 EACH IV PRN ×3 (08:33→11:10)
[2020-01-21] MEDS: INSULIN GLARGINE 100 UNIT/ML SUBCUT SCH (08:33)
[2020-01-21 08:48] VITALS: BP 140/83
[2020-01-21] MEDS ORDERED: HEPARIN LOCK FLUSH 500 UNIT/5 ML SYRINGE IV ONE (10:55)
== END 2020-01-21 12:35 | disposition home or self-care (01) ==
LOC: N.ED 08:06 → N.EDINP 08:06 → N.TELES 10:56
PROVIDERS: ADMIT Family Medicine; ATTEND Family Medicine

== ENCOUNTER 2020-04-26 11:07 | Inpatient (IN) ==
[2020-04-26] MEDS ORDERED: SODIUM CHLORIDE 0.9% 1,000 ML IV STA (11:16)
[2020-04-26] MEDS ORDERED: HYDROmorphone 2 MG/1 ML VIAL IV STA (11:16)
[2020-04-26] MEDS ORDERED: ONDANSETRON 4 MG/2 ML VIAL IV STA (11:16)
[2020-04-26 11:43] LABS: Basophils % 0.3 % (0.0-0.8); Eosinophils % 0.3 % (0.00-10.9); Immature Granulocytes % 1.1 %; Immature Granulocytes Absolute 0.16 #; Lymphocytes # 0.9 10*3/uL (1.4-4.0); Lymphocytes % 6.2 % (21.3-54.2); Mean Corpuscular HGB Conc 27.7 GM/DL (32-36); Mean Corpuscular Volume 76.7 FL (87-102); Mean Platelet Volume 10.1 FL (9.6-12.0); Monocytes % 6.3 % (1.7-12.7); NRBC # 0.03 10*3/uL; Neutrophils % 85.8 % (38.7-73.9); Platelet Count 624 T/CUMM (130-400); Red Blood Count 2.87 MC/CUMM (3.8-5.5); Red Cell Distribution Width 18.7 % (9.3-17.3); White Blood Count 14.4 T/CUMM (4-12)
[2020-04-26 11:48] LABS: Hemoglobin 6.1 GM/DL (12.0-16.0)
[2020-04-26 11:59] LABS: Albumin 1.7 G/DL (3.4-5.0); Bilirubin,Total 0.6 MG/DL (0.2-1.0); Calcium 8.3 MG/DL (8.5-10.1); Total Protein 6.4 G/DL (6.4-8.3)
[2020-04-26] MEDS ORDERED: DEXTROSE 50% 25 GM/50 ML VIAL IV PRN ×2 (12:00→13:30)
[2020-04-26] MEDS ORDERED: PROMETHAZINE 25 MG/1 ML VIAL IM PRN (12:00)
[2020-04-26] MEDS ORDERED: ACETAMINOPHEN 325 MG TABLET PO PRN (12:00)
[2020-04-26] MEDS ORDERED: GLUCAGON 1 MG VIAL IM PRN ×2 (12:00→13:30)
[2020-04-26] MEDS ORDERED: SODIUM CHLORIDE 0.9% 1,000 ML IV PRN (12:05)
[2020-04-26 12:13] LABS: Apearance,Urine Slightly Hazy (Clear); Bacteria,Urine Many /HPF (Few); Bilirubin,Urine Negative (Negative); Blood, Urine Negative (Negative); Glucose,Urine (UA) Negative (Negative); Ketones,Urine 20 mg/dL (Negative); Mucus,Urine Many /LPF (Occasional); Nitrite,Urine Negative (Negative); Protein,Urine 30 MG/DL; RBC,Urine 4 /HPF (0-4); Sperm,Urine Occasional /HPF (Negative); Squamous Epithelial Cell,Urine Occasional /HPF (0-10); Urine Color Yellow (Yellow); Urine Specific Gravity 1.027 (1.001-1.035); WBC,Urine 29 /HPF (0-6)
[2020-04-26 12:17] LABS: Hypochromasia 2+; Polychromasia 2+
[2020-04-26 12:18] LABS: Macrocytosis 1+; Microcytosis 2+; Platelet Estimate Increased
[2020-04-26] MEDS ORDERED: ENOXAPARIN 40 MG/0.4 ML SYRINGE SUBCUT SCH (13:00)
[2020-04-26] MEDS ORDERED: fentaNYL 50 MCG/HR PATCH TRANSDERM SCH (13:30)
[2020-04-26] MEDS: SODIUM CHLORIDE 0.45% 1,000 ML IV SCH (13:40)
[2020-04-26] MEDS: cefTRIAXone 1,000 MG in SYRINGE 1 EACH IV SCH (13:57)
[2020-04-26] MEDS: HYDROmorphone 2 MG/1 ML VIAL IV PRN ×2 (16:06→20:30)
[2020-04-26] MEDS: INSULIN LISPRO 100 UNIT/ML SUBCUT SCH ×2 (17:52→23:57)
[2020-04-26] MEDS: FERROUS SULFATE 300 MG/5 ML UDCUP PO SCH (20:30)
[2020-04-27] MEDS: HYDROmorphone 2 MG/1 ML VIAL IV PRN ×6 (00:08→19:51)
[2020-04-27] MEDS: SODIUM CHLORIDE 0.45% 1,000 ML IV SCH ×3 (00:11→13:08)
[2020-04-27 06:32] LABS: Basophils # 0.1 10*3/uL (0.0-0.2); Basophils % 0.4 % (0.0-0.8); Eosinophils # 0.2 10*3/uL (0.0-0.87); Hematocrit 26.8 VOL% (35.7-47.0); Immature Granulocytes Absolute 0.31 #; Lymphocytes % 6.6 % (21.3-54.2); Mean Corpuscular HGB Conc 29.9 GM/DL (32-36); Mean Corpuscular Volume 78.4 FL (87-102); Monocytes % 7.1 % (1.7-12.7); NRBC # 0.07 10*3/uL; Neutrophils % 82.9 % (38.7-73.9); Platelet Count 561 T/CUMM (130-400); Red Blood Count 3.42 MC/CUMM (3.8-5.5); Red Cell Distribution Width 18.8 % (9.3-17.3); White Blood Count 15.8 T/CUMM (4-12)
[2020-04-27] MEDS: INSULIN LISPRO 100 UNIT/ML SUBCUT SCH ×4 (08:03→20:52)
[2020-04-27] MEDS: PANTOPRAZOLE 40 MG TABLET PO SCH (08:03)
[2020-04-27] MEDS: FERROUS SULFATE 300 MG/5 ML UDCUP PO SCH ×2 (08:03→20:48)
[2020-04-27] MEDS ORDERED: fentaNYL 50 MCG/HR PATCH TRANSDERM SCH (09:28)
[2020-04-27] MEDS ORDERED: ENOXAPARIN 30 MG/0.3 ML SYRINGE SUBCUT SCH (11:00)
[2020-04-27] MEDS: METOPROLOL TARTRATE 25 MG TABLET PO SCH ×2 (11:22→20:49)
[2020-04-27] MEDS ORDERED: HYDROcod/ACETAMIN 7.5-325 MG/15 ML UDCUP PO PRN (12:12)
[2020-04-27] MEDS: cefTRIAXone 1,000 MG in SYRINGE 1 EACH IV SCH (13:09)
[2020-04-27] MEDS: TEMAZEPAM 7.5 MG CAPSULE PO PRN (20:49)
[2020-04-28] MEDS: HYDROmorphone 2 MG/1 ML VIAL IV PRN ×6 (00:11→21:31)
[2020-04-28] MEDS: SODIUM CHLORIDE 0.45% 1,000 ML IV SCH (02:39)
[2020-04-28 05:55] LABS: Basophils # 0.1 10*3/uL (0.0-0.2); Basophils % 0.3 % (0.0-0.8); Eosinophils # 0.1 10*3/uL (0.0-0.87); Eosinophils % 0.8 % (0.00-10.9); Hematocrit 22.6 VOL% (35.7-47.0); Hemoglobin 6.5 GM/DL (12.0-16.0); Immature Granulocytes % 1.7 %; Immature Granulocytes Absolute 0.27 #; Lymphocytes # 1.1 10*3/uL (1.4-4.0); Lymphocytes % 6.6 % (21.3-54.2); Mean Corpuscular HGB Conc 28.8 GM/DL (32-36); Mean Corpuscular Volume 82.5 FL (87-102); Mean Platelet Volume 10.6 FL (9.6-12.0); Monocytes % 6.9 % (1.7-12.7); NRBC # 0.06 10*3/uL; Neutrophils % 83.7 % (38.7-73.9); Platelet Count 573 T/CUMM (130-400); Red Blood Count 2.74 MC/CUMM (3.8-5.5); Red Cell Distribution Width 19.5 % (9.3-17.3)
[2020-04-28 06:06] LABS: Albumin 1.6 G/DL (3.4-5.0); Bilirubin,Total 1.3 MG/DL (0.2-1.0); Calcium 7.9 MG/DL (8.5-10.1); Osmolality,Calculated 285.1 MOS/KG (273-304); Total Protein 5.8 G/DL (6.4-8.3)
[2020-04-28] MEDS ORDERED: SODIUM CHLORIDE 0.9% 1,000 ML IV PRN (06:59)
[2020-04-28] MEDS: INSULIN LISPRO 100 UNIT/ML SUBCUT SCH ×4 (07:51→21:35)
[2020-04-28] MEDS: FERROUS SULFATE 300 MG/5 ML UDCUP PO SCH ×2 (08:48→21:35)
[2020-04-28] MEDS: PANTOPRAZOLE 40 MG TABLET PO SCH (08:48)
[2020-04-28] MEDS: METOPROLOL TARTRATE 25 MG TABLET PO SCH ×2 (08:49→21:34)
[2020-04-28] MEDS ORDERED: fentaNYL 75 MCG/HR PATCH TRANSDERM SCH (09:00)
[2020-04-28] MEDS ORDERED: diphenhydrAMINE CAP 50 MG CAPSULE PO ONE (09:00)
[2020-04-28] MEDS ORDERED: SODIUM CHLORIDE 0.9% 1,000 ML IV ONE (09:05)
[2020-04-28] MEDS ORDERED: PEMBROLIZUMAB 200 MG in SODIUM CHLORIDE 0.9% 50 ML IV ONE (10:00)
[2020-04-28] MEDS: PANTOPRAZOLE 40 MG VIAL IV SCH (11:00)
[2020-04-28] MEDS: cefTRIAXone 1,000 MG in SYRINGE 1 EACH IV SCH (14:28)
[2020-04-28] MEDS: VANCOMYCIN INJ 1,250 MG in SODIUM CHLORIDE 0.9% 250 ML IV SCH (14:37)
[2020-04-28 15:26] LABS: Hematocrit 31.8 VOL% (35.7-47.0)
[2020-04-28 15:29] LABS: Hemoglobin 9.7 GM/DL (12.0-16.0)
[2020-04-28] MEDS ORDERED: MAGNESIUM SULF RIDER 4 GM in PREMIX 1 EACH IV PRN (17:24)
[2020-04-28] MEDS ORDERED: MAGNESIUM SULF RIDER 2 GM in PREMIX 1 EACH IV PRN (17:24)
[2020-04-28] MEDS: TEMAZEPAM 7.5 MG CAPSULE PO PRN (21:36)
[2020-04-28] MEDS: ONDANSETRON 4 MG/2 ML VIAL IV PRN (23:41)
[2020-04-29] MEDS: VANCOMYCIN INJ 1,250 MG in SODIUM CHLORIDE 0.9% 250 ML IV SCH ×2 (03:36→15:46)
[2020-04-29 05:12] LABS: Basophils # 0.1 10*3/uL (0.0-0.2); Basophils % 0.2 % (0.0-0.8); Eosinophils % 0.1 % (0.00-10.9); Hematocrit 32.7 VOL% (35.7-47.0); Hemoglobin 9.9 GM/DL (12.0-16.0); Immature Granulocytes % 1.1 %; Immature Granulocytes Absolute 0.31 #; Lymphocytes # 0.7 10*3/uL (1.4-4.0); Lymphocytes % 2.5 % (21.3-54.2); Mean Corpuscular HGB Conc 30.3 GM/DL (32-36); Mean Corpuscular Volume 87.9 FL (87-102); Mean Platelet Volume 10.2 FL (9.6-12.0); Monocytes % 5.5 % (1.7-12.7); NRBC # 0.13 10*3/uL; Neutrophils % 90.6 % (38.7-73.9); Platelet Count 630 T/CUMM (130-400); Red Blood Count 3.72 MC/CUMM (3.8-5.5); Red Cell Distribution Width 19.4 % (9.3-17.3); White Blood Count 28.3 T/CUMM (4-12)
[2020-04-29 05:16] LABS: Albumin 1.9 G/DL (3.4-5.0); Bilirubin,Total 0.8 MG/DL (0.2-1.0); Calcium 8.5 MG/DL (8.5-10.1); Osmolality,Calculated 289.7 MOS/KG (273-304); Total Protein 6.6 G/DL (6.4-8.3)
[2020-04-29 05:32] LABS: Band Neutrophils 6 % (0-10); Lymphocytes 1 % (20-55); Platelet Estimate Increased; Segmented Neutrophils 90 % (50-85); Total Cells Counted 100
[2020-04-29] MEDS: ONDANSETRON 4 MG/2 ML VIAL IV PRN ×2 (08:20→21:30)
[2020-04-29] MEDS: PANTOPRAZOLE 40 MG VIAL IV SCH (09:27)
[2020-04-29] MEDS: INSULIN LISPRO 100 UNIT/ML SUBCUT SCH ×3 (09:27→16:03)
[2020-04-29] MEDS ORDERED: diphenhydrAMINE CAP 50 MG CAPSULE PO ONE (09:30)
[2020-04-29] MEDS ORDERED: diphenhydrAMINE 50 MG/1 ML VIAL IV ONE (09:30)
[2020-04-29] MEDS: SODIUM CHLORIDE 0.45% 1,000 ML IV SCH ×2 (09:35)
[2020-04-29] MEDS ORDERED: PEMBROLIZUMAB 200 MG in SODIUM CHLORIDE 0.9% 50 ML IV ONE (10:00)
[2020-04-29] MEDS: METOPROLOL TARTRATE 25 MG TABLET PO SCH ×2 (11:53→20:29)
[2020-04-29] MEDS: FERROUS SULFATE 300 MG/5 ML UDCUP PO SCH ×2 (11:53→20:29)
[2020-04-29] MEDS: cefTRIAXone 1,000 MG in SYRINGE 1 EACH IV SCH (12:31)
[2020-04-29] MEDS: HYDROmorphone 2 MG/1 ML VIAL IV PRN (15:46)
[2020-04-29] MEDS ORDERED: ALBUTEROL/IPRATROPIUM 3 ML NEB RESP TX ONE ×2 (20:52→21:00)
[2020-04-29] MEDS ORDERED: MORPHINE 4 MG/1 ML VIAL ONE (20:58)
[2020-04-29] MEDS ORDERED: MORPHINE 4 MG/1 ML VIAL IV ONE (21:02)
[2020-04-29] MEDS ORDERED: NALOXONE 0.4 MG/ML VIAL IV PRN (21:08)
[2020-04-29] MEDS: methylPREDNISolone SOD SUC 40 MG/1 ML VIAL IV SCH (21:28)
[2020-04-29] MEDS ORDERED: METOPROLOL TARTRATE 5 MG/5 ML VIAL IV SCH (21:30)
[2020-04-29] MEDS ORDERED: MORPHINE IV SCH (21:30)
[2020-04-29] MEDS ORDERED: SODIUM CHLORIDE 0.9% IV SCH (21:30)
[2020-04-29] MEDS ORDERED: MORPHINE PCA 30 MG/30 ML SYRINGE IV SCH (21:30)
[2020-04-30] MEDS: ALBUTEROL/IPRATROPIUM 3 ML NEB RESP TX SCH ×4 (01:10→19:29)
[2020-04-30] MEDS: METOPROLOL TARTRATE 5 MG/5 ML VIAL IV SCH ×4 (02:08→15:53)
[2020-04-30] MEDS: SODIUM CHLORIDE 0.45% 1,000 ML IV SCH ×3 (02:35→21:57)
[2020-04-30] MEDS: INSULIN LISPRO 100 UNIT/ML SUBCUT SCH ×4 (02:36→15:58)
[2020-04-30] MEDS: VANCOMYCIN INJ 1,250 MG in SODIUM CHLORIDE 0.9% 250 ML IV SCH ×2 (03:08→15:53)
[2020-04-30] MEDS: ONDANSETRON 4 MG/2 ML VIAL IV PRN (03:13)
[2020-04-30] MEDS: methylPREDNISolone SOD SUC 40 MG/1 ML VIAL IV SCH ×2 (05:43→13:15)
[2020-04-30] MEDS: FERROUS SULFATE 300 MG/5 ML UDCUP PO SCH (09:28)
[2020-04-30] MEDS: PANTOPRAZOLE 40 MG VIAL IV SCH (09:29)
[2020-04-30 12:13] VITALS: BP 88/46
[2020-04-30] MEDS: cefTRIAXone 1,000 MG in SYRINGE 1 EACH IV SCH (13:16)
== END 2020-04-30 19:22 | disposition expired | DRG 374 ==
LOC: EDUNIT# → EDBD → N.ED 11:07 → N.EDINP 12:00 → N.4E 13:10
PROVIDERS: ADMIT Family Medicine; ATTEND Family Medicine